=== PATIENT | female | born 1940 | race Caucasian/White ===

== ENCOUNTER 2023-09-26 17:51 | Inpatient (IN) | payer MEDICARE, SELFPAY ==
[2023-09-26] VITALS (21 sets, daily range): BP systolic 132–160; BP diastolic 52–80; BMI 29.5; BMI 28.5
[2023-09-26 12:26] LABS: % Basophils 1.8 % (0-2); % Eosinophils 4.1 % (0-6); % Immature Granulocytes 0.3 % (0-0.5); % Lymphocytes 36.8 % (20.5-51.1); % Monocytes 13.5 % (1.7-9.3); % Neutrophils 43.5 % (42.2-75.2); Absolute Basophils 0.1 10^3/uL (0-0.2); Absolute Eosinophils 0.2 10^3/uL (0-0.7); Absolute Lymphocytes 1.4 10^3/uL (1.2-3.4); Absolute Monocytes 0.5 10^3/uL (0.1-0.6); Absolute Neutrophils 1.7 10^3/uL (1.4-6.5); Hematocrit 23.1 % (37.0-47.0); Mean Corp Hgb Conc. 30.3 g/dL (33.0-37.0); Mean Corpuscular Hgb 21.8 pg (27.0-31.0); Mean Platelet Volume 8.9 fL (7.4-10.4); Nucleated Red Blood Cells % 0 %; Platelet Count 203 10^3/uL (130-400); Red Blood Cell Count 3.21 10^6/uL (4.20-5.40); White Blood Cell Count 3.9 10^3/uL (4.8-10.8)
[2023-09-26 12:40] LABS: INR 1.02; PT 13.4 Sec (11.4-14.6)
[2023-09-26 12:41] LABS: APTT 26.4 Sec (23.4-35.0)
[2023-09-26 12:42] LABS: ALT (SGPT) 18 U/L (0-35); AST (SGOT) 23 U/L (14-36); Albumin 3.8 g/dl (3.5-5.0); Alkaline Phosphatase 55 U/L (38-126); Blood Urea Nitrogen 15 mg/dl (7-17); Calcium 8.9 mg/dl (8.4-10.2); Carbon Dioxide 22 mmol/L (22-30); Chloride 107 mmol/L (98-107); Glucose 95 mg/dl (70-99); Potassium 4.2 mmol/L (3.5-5.1); Sodium 137 mmol/L (135-145); Total Bilirubin 0.8 mg/dl (0.2-1.3); Total Protein 6.6 g/dl (6.3-8.2); eGFR > 60.00
--- NOTE | 2023-09-26 16:01 | ED.GENMED ---
History of Present Illness
General
Chief Complaint: Abnormal Lab Value
Source: patient
Exam Limitations: none
Time Seen by Provider: 09/26/23 15:29
Nursing documentation reviewed up to this point in time: agreed with
Travel History
Have you had any contact with someone who has COVID-19?: No
Do you have any symptoms of coronavirus? Fever > 100 degrees, chills, cough, shortness of breath, sore throat, loss of taste or smell, muscle aches, or headache?: No
History of Present Illness
History of Present Illness:
82-year-old female with a history of hyperlipidemia not on medication, iron deficiency anemia Kanu compliant with her iron and depression presents for exertional shortness of breath, lightheadedness and fatigue ongoing over the last several weeks.
Patient had a hospitalization in December 2022 related to symptomatic anemia and was given a transfusion at that time. She coincidentally also had a UTI and had Klebsiella positive blood cultures.
Patient was placed on oral iron which she is occasionally compliant with because it gives her looser stools. Patient says that she has not followed up with a cylinder die machine helper since her admission but just her family doctor. While inpatient in December she
had an EGD and a colonoscopy, the colonoscopy visualized some hemorrhoids with ulceration on the hemorrhoid but no active bleeding, her EGD did not show any active bleeding
Patient says that she went to her doctor yesterday and had blood work and was called today with a hemoglobin of 7. Yesterday the patient was examined the rectal exam which was heme-negative brown stool and has not reported any positive blood in the
stool. Or black stool.
She is not having any exertional chest pain.
Secondarily the patient is also complaining of increased depressive thoughts, she is not sure if her anemia is contributing here but she has been on Lexapro for several months without any improvement.' Although she has no thoughts of self-harm she
is feeling quite hopeless and feels as though she needs to speak with a psychiatrist.
Past History
Past History
ED Past Medical History: Hypercholesterolemia and Psychiatric (anxiety/depression)
ED Past Surgical History: Bowel resection (Hx diverticulitis), Cholecystectomy and Gynecological (hysterectomy)
Social History
Tobacco: Non-smoker
Alcohol: None
Drug: None
Personal:
Living: alone
Employment: Retired
Review of Systems
Review of Systems
Allergies reviewed?: Yes
All Other Systems: Not applicable
Phy Exam
Physical Exam
Physical Exam:
GENERAL: Alert , in no apparent distress
EYE: pupils equal and reactive
NECK: Supple
ENT: o/p clr, mmm.
CARDIAC: Regular rate and rhythm .
LUNGS: Clear breath sounds bilaterally, no acute respiratory distress, no wheezes/rales/rhonchi
ABDOMEN: Soft, without focal tenderness, no r/g, no cvat, normal bowel sounds
DEFERRED RECTAL, HAD HEME NEG BROWN STOOL YESTERDAY
NEUROLOGICAL: Alert and oriented, no focal neuro deficits
SKIN: Warm and dry, skin intact.
MUSCULOSKELETAL: No edema, well perfused. neg jimena's sign
PSYCH: Normal and appropriate interaction.
Course
Orders/Labs/Results
Orders:
Orders
09/26/23 12:07
Type+Screen Urgent
Complete Blood Count/With Diff Urgent
Comprehensive Metabolic Panel Urgent
PT/INR [Prothrombin Time] Urgent
PTT Urgent
09/26/23 15:53
Blood Bank Products [* Blood Bank Products] Urgent
Blood Bank Products: *Packed RBC Leuko(PRBC's)
Quantity: 2
Transfuse Today: Yes
Reason: Anemia
09/26/23 16:01
Electrocardiogram (*1) Urgent
Reason for Study: Shortness of Breath
EKG- Treatment ONCE
Abnormal Lab Results
09/26/23
12:07
WBC 3.9 L 10^3/uL
(4.8-10.8)
RBC 3.21 L 10^6/uL
(4.20-5.40)
Hgb 7.0 L g/dL
(12.0-16.0)
Hct 23.1 L %
(37.0-47.0)
MCV 72.0 L fL
(81.0-99.0)
MCH 21.8 L pg
(27.0-31.0)
MCHC 30.3 L g/dL
(33.0-37.0)
RDW 17.0 H %
(11.5-14.5)
Monocytes % 13.5 H %
(1.7-9.3)
Crossmatch IS Only See Detail
09/26/23 12:07
09/26/23 12:07
Vital Signs
Initial and Last Documented VS:
Initial Vital Signs
Temp Pulse Resp BP Pulse Ox
98.6 F 67 20 133/68 97
09/26/23 11:59 09/26/23 11:59 09/26/23 11:59 09/26/23 11:59 09/26/23 11:59
Last Documented Vital Signs
Temp Pulse Resp BP Pulse Ox
98.1 F 71 16 142/52 98
09/26/23 16:23 09/26/23 16:23 09/26/23 16:23 09/26/23 16:23 09/26/23 16:23
MDM/Problems Addressed
Differential Diagnosis Includes:
Symptomatic anemia, depression, iron deficiency
MDM/Problems Addressed:
82-year-old female with known history of anemia presents for hemoglobin of 7 taken outpatient yesterday with symptoms of lightheadedness and fatigue. She had heme-negative stool yesterday on exam per the patient's documented visit at [facility]
with the provider. I was able to visualize that paperwork. Patient reports no black stool or bleeding from anywhere. She is intermittently compliant with her iron. She is also reporting feeling of helplessness and increasing depression. She is
not suicidal currently. Her son is also in the room and is concerned about her degree of depression. Patient says that she has a hard time confiding in people.
Given these 2 issues we will admit for transfusion, hemoglobin trending as well as psychiatrist consult
*Critical Care Note
Total Time (30-74mins, 75-104mins- exclusive of procedures): Not Applicable
ED Attending Note
-
Portions of this chart may have been created with voice recognition software.� Occasional wrong word or��sound alike� substitutions may have occurred due to the inherent limitations of voice recognition software.
Discharge Plan
Departure
Patient Disposition: Admit
Date of Disposition: 09/26/23
Time of Disposition: 16:06
Admit to: Med/Surg
Presentation/result/management discussed w/ accepting MD/DO: Hospitalist
Condition: Fair
Covid-19: Not Applicable
Discharge Problem:
Symptomatic anemia, Depression
Prescriptions:
No Action
acetaminophen [Tylenol Extra Strength] 500 mg Tablet
1,000 mg PO Q8HPRN PRN (Reason: mild pain)
escitalopram oxalate 20 mg Tablet
20 mg PO DAILY
Referrals:
Marissa Laguna MD [Family Provider] -
Interventions
Interventions:
*Risk Screen - Suicide Last Done: 09/26/23 15:34
*General Assessment Last Done: 09/26/23 15:34
*Neglect/Abuse Screening Last Done: 09/26/23 15:34
*ED COVID-19 Vaccine History Last Done: 09/26/23 11:59
Discharge Date and Time
Print Language: URDU
--- NOTE | 2023-09-26 16:32 | HPS.HSE ---
Addendum entered and electronically signed by Rosamaria Doherty MD 09/26/23 21:21:
I saw and examined the patient.
The OPTICIAN MANAGER or PA's note was reviewed and I agree with the note.
Comment:
82F [facility] anxiety/depression, iron deficiency anemia, Klebsiella bacteremia December 2022, diverticulitis with bowel resection.here for symptomatic anemia exertional dyspnea lightheadedness fatigue last several weeks. Hgb 7.0
receiving 1PRBC in ED. Outpt labs also noted severe Iron deficiency and low B12 levels. Otherwise VSS. No obvious signs of bleeding. Patient also reports concerns worsening depression despite home med Lexapro. Denies suicidal ideation
Physical Exam
General: No pallor, cyanosis, or jaundice.
HEENT: Throat clear. PERRLA Normocephalic atraumatic
NECK: Supple. No JVD Carotid Bruits
RESPIRATORY: Lungs clear to auscultation. No crackles wheezes stridor
CVS: S1, S2 normal. RRR. No murmur, rub or gallop.
ABDOMEN: Soft, non-tender. No distension. BS+/normal.
EXTREMITIES: No peripheral cyanosis or edema.
CORK GRINDER: AOx3. No focal deficits.
#Anemia of chronic disease
#severe iron def
#Low B12
Follow up AM post-transfusion CBC
check TSH reflex T4
Repeat Iron Studies and B12 leval
IV iron infusion, B12 supplementation
Heme GI Psych Eval
Original Note:
Family Physician
-
Family Physician: Marissa Laguna
Chief Complaint
-
Shortness of breath on exertion, lightheadedness, fatigue times several weeks
History of Present Illness
82-year-old female from [facility] complaining of shortness of breath on exertion, lightheadedness and fatigue for the last several weeks. She reportedly had heme-negative brown stool yesterday at her PCP. She has history of
iron deficiency anemia and does not take oral iron. She did require IV Ferrlecit for infusions December 2022. She had routine labs by PCP yesterday and called with a hemoglobin of 7, iron sat 5%, iron 22 and low B12 of 194 and advised to come to ER
for evaluation. She also reports increased depression not improving on Lexapro but no suicidal ideation. She denies headache, dizziness, fever, chills, chest pain, palpitations, shortness breath, cough, abdominal pain, nausea, vomiting, diarrhea,
black stools, urinary symptoms. She has past medical history of anxiety/depression, iron deficiency anemia, Klebsiella bacteremia December 2022, diverticulitis with bowel resection.
Medical History
Past Medical History
Past Medical History: Reports Other
Additional Past Medical History:
Iron deficiency anemia December 2022
Klebsiella bacteremia December 2022
Hypercholesterolemia
anxiety
depression
s/p Bowel resection (Hx diverticulitis)
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
Past Surgical History: Reports Other
Additional Past Surgical History:
Cholecystectomy
hysterectomy
s/p Bowel resection (Hx diverticulitis)
Bilateral total knee replacements
Social History
Tobacco: Non-smoker
Alcohol: None
Drug: None
Personal: Single
Living: Assisted Living ([facility] independent)
Family History
Family History: Other (Father age 98 unsure mother age 80 4 GI bleed, Hx iron deficiency, brother dementia)
Allergies / Home Medications
Allergies reflects when Allergies were last updated in adQ.
Home Medications with original date entered in adQ
Allergy/Medication List:
Allergies
Allergy/AdvReac Type Severity Reaction Status Date / Time
No Known Allergies Allergy Verified 01/05/23 16:39
Home Medications
acetaminophen 500 mg tablet (Tylenol Extra Strength) 1,000 mg PO Q8HPRN PRN mild pain 09/26/23
escitalopram oxalate 20 mg tablet 20 mg PO DAILY 09/26/23
Review of Systems
-
History Source: Patient and Family (Son at bedside)
A 12 point ROS was completed and negative except as noted: Yes
Constitutional: Reports Fatigue; Denies Fever or Chills
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
Respiratory: Reports Trouble Breathing (Dyspnea on exertion); Denies Cough
Cardiac: Denies Chest Pain, Diaphoresis, Palpitations or Syncope
Abdomen/GI: Denies Abdominal Pain, Nausea, Vomiting, Diarrhea, Constipated, Bloody Stools or Black Stools
: Denies Dysuria, Frequency, Flank Pain, Incontinence, Difficulty Voiding or Urgency
Musculoskeletal: Denies Joint Pain or Edema
Skin: Denies Itching or Rash
Neurological: Reports Dizzy; Denies Headache or Weakness
Endocrine: Reports No Symptoms
Hematologic/Lymphatic: Reports No Symptoms
Psych: Reports Calm
Physical Exam
Vital Signs
Vital Signs
Temp Pulse Resp BP Pulse Ox
98.1 F 71 16 142/52 98
09/26/23 16:23 09/26/23 16:23 09/26/23 16:23 09/26/23 16:23 09/26/23 16:23
Physical Exam
General: Comfortable, Conversant and Obese; No Pain, Fever or Chills
HEENT: NormoCephalic, Anicteric, Moist mucous membranes, PERRLA, No Ptosis and Other
Respiratory: Clear; No Wheezes, Rales or Rhonchi
Cardiac: S1/S2 and Regular Rhythm; No Murmur, Rub, Gallop or Peripheral Edema
Breast: Deferred by me
GI: Soft, Non Tender, Non Distended, Normal Bowel Sounds and No Hepatosplenomegaly
Rectal: Deferred by Provider (Was heme-negative brown by her PCP Dr. Marissa Laguna yesterday 09/25/2023)
Genito-urinary: Deferred by me
Musculoskeletal: No Clubbing, No Cyanosis and No Edema
Skin: Warm and Dry; No Rash or Jaundice
Neuro: AO x 3, No Motor Deficits, Nonfocal/grossly intact, No Sensory Deficits and Other (Chronic left-sided facial droop from prior Mercado's palsy); No Slurred Speech, Facial Droop or Tremors
Psych: Calm
Laboratory Results
-
09/26/23 12:07
09/26/23 12:07
Laboratory Results
PT 13.4 Sec (11.4-14.6) 09/26/23 12:07
INR 1.02 09/26/23 12:07
APTT 26.4 Sec (23.4-35.0) 09/26/23 12:07
Total Bilirubin 0.8 mg/dl (0.2-1.3) 09/26/23 12:07
AST 23 U/L (14-36) 09/26/23 12:07
ALT 18 U/L (0-35) 09/26/23 12:07
Alkaline Phosphatase 55 U/L (38-126) 09/26/23 12:07
Impression/Plan
-
Impression/plan:
Admit to telemetry
#Acute on chronic symptomatic microcytic anemia
Hgb 7, MCV 72 prior Hgb 9 01/11/2023
Hx iron deficiency anemia-received Ferrlecit 4 units December 2022
(Outpatient labs of 09/25/2023 iron sat 5%, iron 22 and low B12 of 192)-see scanned results in chart
-IV Ferrlecit
-Type and screen obtain blood consent
-Transfuse 1 unit PRBC
-Patient not compliant with oral iron recommended she resume after discharge and follow with PCP
-Follow CBC
-Consult HEME
-Consult GI
#B12 deficiency
Outpatient labs 09/25/2023 B12 192
-Start supplemental B12 daily
#Worsening depression
#Hx anxiety
No active suicidal ideation
-Continue current Lexapro
-Consult Psychiatry
#GERD/Hx GI bleed-likely hx december 2022
-Had probable GI bleed location not determined January 05, 2023
EGD/colonoscopy December 2022 no source of bleeding was advised had video capsule Endo but never had
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
#Hx Klebsiella bacteremia January 05, 2023
#HLD
-No reported meds
DVT prophylaxis
SCDs
Full code
--- NOTE | 2023-09-26 17:31 | W.PN.UPDATE ---
Update Note
Progress Note Update
billing purposes
--- NOTE | 2023-09-26 23:00 | PTCARENOTE ---
Pt arrived to [facility] from the ED and ambulated with x1 assist from stretcher to bed. Pt AAOx3, oriented to room with call car in reach. VS stable on admission.
[2023-09-26] MEDS: TYLENOL 650 MG PO (23:32)
[2023-09-27] VITALS (10 sets, daily range): BP systolic 16–142; BP diastolic 55–107; PULSE 81–86; O2SAT 93; BMI 28.5
--- NOTE | 2023-09-27 06:54 | CON.GI ---
Addendum entered and electronically signed by Erin Tejada DO 09/27/23 17:11:
GI will sign off, please call with questions. Patient will follow up with us outpatient.
Addendum entered and electronically signed by Erin Tejada DO 09/27/23 11:43:
patient seen and examined independently of PROCUREMENT SERVICES MANAGER. I agree with her note with my additions below
Tracy is an 82-year-old female with history of nondysplastic short segment Lundy's, large hiatal hernia, B12 deficiency, diverticulitis status post bowel resection in 2016 at [facility] which may have also included some small bowel, iron
deficiency anemia including last year where she was worked up in December 2022 with an endoscopy and a colonoscopy. She also had a Klebsiella bacteremia at that time. She was told to continue PPI and an outpatient capsule was to be done but
unfortunately she was unable to get a ride and was unable to follow-up in our office. She has been off PPI. She denies any dysphagia, no overt bleeding. Her stools are brown. She does have occasional diarrhea and says if she does not eat it will
get worse. She is lost about 8 pounds with dietary changes and moving to [facility]. Prior to admission her stools were subjectively heme-negative. Also has a history of cholecystectomy.
Her studies were consistent with iron deficiency anemia and on arrival her hemoglobin was 7 with an MCV in the 70s. She got 2 units of blood and over responded to 10.
Hematology also was consulted.
CT scan showed multiple anastomosis: -Bowel anastomosis at the distal ileum, ileocolic junction and distal sigmoid colon
Plan EGD
-- The EGD revealed Juan Jose ulcerations, large 10 cm hiatal hernia, irregular Z-line and a superficial duodenal ulcer in the bulb
-- Biopsies were taken for celiac disease and for H. pylori
-- Patient had been off her PPI
-- PLAN: PPI BID x 1 month, then once daily indefinitely, B12 replacement, IV iron. if no improvement in hgb studies after a couple of months, would do capsule outpatient.
-- discussed with team
-- left message with son, Jaun
Original Note:
Consultation
-
Date/Time Consultation Requested: 09/26/23 1700
Date/Time Consultation Performed: 09/17/23 0900
Requesting Provider: MINGO Capps
Performing Provider: MINGO Robles, Erin Tejada DO
Reason for Consultation: anemia
Medical History
Chief Complaint / HPI
Chief Complaint: weakness/shortness of breath
History of Present Illness:
The patient is a pleasant 82-year-old female with a past medical history significant for lundy's colon polyps, b12 deficiency, anxiety, depression, hyperlipidemia, diverticulitis status post bowel resection in 2015 at [facility], prior bells
palsy, iron deficiency anemia with admission in December for anemia work up and noted klebsiella bacteremia at that time. 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 Pt was instructed to continue PPI and due to age no repeat EGD needed. Colonoscopy initially poor prep but repeat with 6 mm polyp rectosigmoid, diverticulosis and internal hemorrhoids bx with TA polyp. Pt was sent up for VCE
but did not proceed with testing or follow up and recall not having ride for procedure. She now returns with hbg 7 with MCV 72 with OP iron 22, iron sat 5%, noted low B12 194 as outpatient.
She currently admits to occasional Tylenol and Aleve use. She admits to occasional diarrhea and wt loss 8 lbs but moved to [facility] with change in diet a few months ago. She denies dysphagia, odynophagia, GERD, nausea, vomiting, GERD,
abdominal pain, constipation, blood or black in stools. She reports heme neg stool at [facility] prior to admission.
Past Medical History
Past Medical History: Hypercholesterolemia, Psychiatric (anxiety/depression) and Other (iron deficiency anemia, klebsiella bacteremia 12/2022, adenomatous colon polyps, lundy's, bells palsy)
Past Surgical History: Bowel Resection (for diverticulitis ), Cholecystectomy, Gynecological (hysterectomy) and Orthopedic (TKR)
Social History
Tobacco: Non-Smoker
Alcohol: Occasional
Drug: None
Living: Other ([facility])
Employment: Retired
Family History
Family History: Other (no family hx colon CA or polyps)
Allergies / Home Medications
Allergy/AdvReac Type Severity Reaction Status Date / Time
No Known Allergies Allergy Verified 01/05/23 16:39
�Medication �Instructions �Recorded
acetaminophen 500 mg tablet 1,000 mg PO Q8HPRN PRN mild pain 09/26/23
(Tylenol Extra Strength)
escitalopram oxalate 20 mg tablet 20 mg PO DAILY 09/26/23
Review of Systems
-
History Source: Patient and Family
Constitutional: Reports Weight Loss (few lbs )
EENT: Reports No Symptoms
Respiratory: Reports Trouble Breathing
Cardiac: Reports No Symptoms
Abdomen/GI: Reports Diarrhea (occasional )
: Reports No Symptoms
Musculoskeletal: Reports No Symptoms
Skin: Reports No Symptoms
Neurological: Reports Dizzy
Hematologic/Lymphatic: Reports No Symptoms
Vital Signs
Temp Pulse Resp BP Pulse Ox
97.9 F 63 18 142/76 96
09/26/23 22:41 09/26/23 22:41 09/26/23 22:41 09/26/23 22:41 09/26/23 23:00
Physical Exam
Exam
General: Well Developed, Well Nourished and No Apparent Distress
HEENT: Normocephalic, Anicteric and Moist Mucous Membranes
Respiratory: Clear
Cardiac: Regular Rhythm
GI: Soft, Non Distended and Normal Bowel Sounds
Musculoskeletal: No Clubbing and No Cyanosis
Skin: Warm and Dry
Neuro: Awake, Alert and AO x 3
Psych: Calm
Results
WBC 3.9 10^3/uL (4.8-10.8) L 09/26/23 12:07
Hgb 7.0 g/dL (12.0-16.0) L 09/26/23 12:07
Hct 23.1 % (37.0-47.0) L 09/26/23 12:07
MCV 72.0 fL (81.0-99.0) L 09/26/23 12:07
Plt Count 203 10^3/uL (130-400) 09/26/23 12:07
Absolute Neuts (auto) 1.7 10^3/uL (1.4-6.5) 09/26/23 12:07
PT 13.4 Sec (11.4-14.6) 09/26/23 12:07
INR 1.02 09/26/23 12:07
APTT 26.4 Sec (23.4-35.0) 09/26/23 12:07
Sodium 137 mmol/L (135-145) 09/26/23 12:07
Potassium 4.2 mmol/L (3.5-5.1) 09/26/23 12:07
Chloride 107 mmol/L (98-107) 09/26/23 12:07
Carbon Dioxide 22 mmol/L (22-30) 09/26/23 12:07
BUN 15 mg/dl (7-17) 09/26/23 12:07
Creatinine 0.7 mg/dL (0.6-1.0) 09/26/23 12:07
Calcium 8.9 mg/dl (8.4-10.2) 09/26/23 12:07
Total Bilirubin 0.8 mg/dl (0.2-1.3) 09/26/23 12:07
AST 23 U/L (14-36) 09/26/23 12:07
ALT 18 U/L (0-35) 09/26/23 12:07
Alkaline Phosphatase 55 U/L (38-126) 09/26/23 12:07
Diagnostic Image Results:
12/2022 CT a/p
1). There is no evidence of acute pathology in the abdomen or pelvis.
2). Nonurgent findings include:
-Dependent atelectasis at the posterior lung bases.
-Cholecystectomy
-Bowel anastomosis at the distal ileum, ileocolic junction and distal sigmoid colon
- 8.5 cm left anterior pelvic wall hernia which contains only fat.
-Multilevel degenerative disc disease with 4 mm grade 1 spondylolisthesis of L3 on L4
-Old 20% compression fracture of the superior endplate of T12
Prior GI Procedures:
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
Colonoscopy: 12/2022 [facility] initially poor prep but repeat with 6 mm polyp rectosigmoid, diverticulosis and internal hemorrhoids bx with TA polyp
Assessment / Plan
-
The patient is a pleasant 82-year-old female with a past medical history significant for lundy's, colon polyps, B12 deficiency, anxiety, depression, hyperlipidemia, diverticulitis status post bowel resection in 2015 at [facility], prior bells
palsy, iron deficiency anemia with admission in December for anemia work up and noted klebsiella bacteremia at that time. 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 Pt was instructed to continue PPI and due to age no repeat EGD needed. Colonoscopy initially poor prep but repeat with 6 mm polyp rectosigmoid, diverticulosis and internal hemorrhoids bx with TA polyp. Pt was sent up for VCE
but did not proceed with testing or follow up and recall not having ride for procedure. She now returns with hbg 7 with MCV 72 with OP iron 22, iron sat 5%, noted low B12 194 as outpatient.
Problem list:
-severe microcytic anemia
-b12 deficiency
-brown heme +stool
-known 10 cm hiatal hernia
Other pertinent medical hx:
- hx lundy's
-adenomatous polyps
-klebsiella bacteremia
-hx diverticulitis s/p bowel resection in 2016
-anxiety/depression
-HLD
-car's palsy
Recommendations:
Etiology of anemia unclear (PUD, ectasias, juan jose lesion with hx 10cm HH vs other as also noted with B12 deficiency) -- recent EGD/colon 12/2022 with lundy's, HH and adenomatous polyp
discussed with patient, son and Dr. Rhoades as off PPI and occasional NSAID use would like to repeat EGD today-- pt is agreeable to proceed but would like to hold on repeat Colonoscopy
If EGD neg-- pt was recommended capsule but did no proceed as did not have a ride-- t/c OP capsule pending EGD results
treat B12 deficiency
add intrinsic factor and parietal cell Ab
change to NPO
add Protonix daily and reviewed with patient and son need to stay on therapy with hx lundy's
NSAID avoidance
trend hbg
iron infusion as needed per hematology
s/p 2 units PRBC's given repeat hbg 10.2
monitor for signs of active bleeding
-
-
Thank you for consultation and allowing me to participate in the patient's care. Please call the occupational health and safety adviser GI physician during the after hours with any questions or concerns.
[2023-09-27 07:32] LABS: % Basophils 1.3 % (0-2); % Eosinophils 3.6 % (0-6); % Immature Granulocytes 0.4 % (0-0.5); % Monocytes 14.5 % (1.7-9.3); % Neutrophils 54.2 % (42.2-75.2); Absolute Basophils 0.1 10^3/uL (0-0.2); Absolute Eosinophils 0.2 10^3/uL (0-0.7); Absolute Lymphocytes 1.2 10^3/uL (1.2-3.4); Absolute Monocytes 0.7 10^3/uL (0.1-0.6); Absolute Neutrophils 2.6 10^3/uL (1.4-6.5); Hematocrit 31.5 % (37.0-47.0); Mean Corp Hgb Conc. 32.4 g/dL (33.0-37.0); Mean Corpuscular Hgb 24.8 pg (27.0-31.0); Mean Corpuscular Volume 76.5 fL (81.0-99.0); Mean Platelet Volume 8.8 fL (7.4-10.4); Nucleated Red Blood Cells % 0 %; Platelet Count 179 10^3/uL (130-400); Red Blood Cell Count 4.12 10^6/uL (4.20-5.40); Red Cell Dist. Width 17.7 % (11.5-14.5); White Blood Cell Count 4.8 10^3/uL (4.8-10.8)
[2023-09-27 07:42] LABS: Hemoglobin 10.2 g/dL (12.0-16.0)
[2023-09-27 08:09] LABS: Blood Urea Nitrogen 13 mg/dl (7-17); Calcium 8.8 mg/dl (8.4-10.2); Carbon Dioxide 23 mmol/L (22-30); Chloride 111 mmol/L (98-107); Estimated Creatinine Clearance 72 ml/min; Glucose 91 mg/dl (70-99); Iron 69 ug/dl (37-170); Potassium 4.1 mmol/L (3.5-5.1); Sodium 137 mmol/L (135-145); eGFR > 60.00
[2023-09-27 08:18] LABS: Percent Saturation 17 % (20-50); Total Iron Binding Capacity 402 ug/dl (265-497)
[2023-09-27] MEDS: VITAMIN B-12 1000 MCG PO (08:29)
[2023-09-27] MEDS: LEXAPRO 20 MG PO (08:30)
[2023-09-27] MEDS: PROTONIX 40 MG PO (08:30)
[2023-09-27 08:36] LABS: TSH Reflex To Free T4 1.94 uIU/ml (0.47-4.68)
[2023-09-27] MEDS: TYLENOL 650 MG PO ×2 (08:40→22:47)
[2023-09-27 08:55] LABS: Vitamin B12 205 pg/ml (239-931)
--- NOTE | 2023-09-27 11:24 | CON.ONC ---
Impression
Impression
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
B12 deficiency
Hiatal hernia
History of Mojica's esophagus
History of adenomatous polyps
History of Klebsiella bacteremia
History of diverticulitis status post bowel resection 2015
Depression/anxiety
HLD
Mercado's palsy with residual weakness
Plan
Plan
With heme positivity would perform EGD to be followed by capsule endoscopy
Parenteral resuscitation with B12 and iron now
Patient may need regular iron resuscitation as an outpatient particularly if now on PPI
Status post 2 units packed red blood cell hemoglobin 10.2
Intrinsic factor antibody
Monitor CBC and reticulocyte count
Patient History
History of Present Illness
82-year-old female from [facility] complaining of shortness of breath on exertion, lightheadedness and fatigue for the last several weeks. She reportedly had heme-negative as an outpatient. She received 1 unit of packed red
blood cells on arrival in the emergency room.. She has history of iron deficiency anemia and does not take oral iron. She did require IV Ferrlecit for infusions December 2022. She had routine labs as an outpatient which resulted a hemoglobin of 7,
iron sat 5%, iron 22 and low B12 of 194 and advised to come to ER for evaluation. She also reports increased depression not improving on Lexapro but no suicidal ideation. She denies headache, dizziness, fever, chills, chest pain, palpitations,
shortness breath, cough, abdominal pain, nausea, vomiting, diarrhea, black stools, urinary symptoms. She has had incomplete GI workup with no history of capsular endoscopy to evaluate small bowel. Previous peptic ulcer.
Past-Medical/Surgical History
Past Medical History
Iron deficiency anemia December 2022
Klebsiella bacteremia December 2022
Hypercholesterolemia
Anxiety
Depression
s/p Bowel resection (Hx diverticulitis)
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
Past Surgical History:
Cholecystectomy
hysterectomy
s/p Bowel resection (Hx diverticulitis)
Bilateral total knee replacements
Social History
Tobacco: Non-smoker
Alcohol: None
Drug: None
Personal: Single
Living: Assisted Living ([facility] independent)
Family History
Family History: Other (Father age 98 unsure mother age 80 4 GI bleed, Hx iron deficiency, brother dementia)
Patient Medication
�Medication �Instructions �Recorded �Confirmed �Last Taken �Type
acetaminophen 500 mg tablet 1,000 mg PO Q8HPRN PRN mild pain 09/26/23 09/26/23 09/25/23 History
(Tylenol Extra Strength)
escitalopram oxalate 20 mg tablet 20 mg PO DAILY Depression 09/26/23 09/26/23 09/26/23 History
Active Medications
Generic Name Dose Route Start Last Admin
Trade Name Freq PRN Reason Stop Dose Admin
Acetaminophen 650 mg 09/26/23 22:33 09/27/23 08:40
Acetaminophen 325 Mg Tablet PO 10/24/23 22:32 650 mg
Q4HPRN PRN Administration
mild pain/MORRISSEY/temp> 100.4F
Bisacodyl 10 mg 09/26/23 22:33
Bisacodyl 10 Mg Rectal Suppository RECTAL 10/24/23 22:32
DAILYPRN PRN
constipation
Cyanocobalamin 1,000 mcg 09/27/23 08:00 09/27/23 08:29
Cyanocobalamin 1,000 Mcg Tablet PO 10/25/23 07:59 1,000 mcg
DAILY LEONEL Administration
Escitalopram Oxalate 20 mg 09/27/23 08:00 09/27/23 08:30
Escitalopram 20 Mg Tablet PO 10/25/23 07:59 20 mg
DAILY LEONEL Administration
Ferric Sodium Gluconate 110 mls @ 110 mls/hr 09/27/23 14:00
Complex 125 mg/ Sodium IV 10/01/23 14:59
Chloride DAILY@1400 LEONEL
Pantoprazole Sodium 40 mg 09/27/23 08:00 09/27/23 08:30
Pantoprazole 40 Mg Delayed Release Tablet PO 10/25/23 07:59 40 mg
DAILY LEONEL Administration
Polyethylene Glycol 17 grams 09/26/23 22:33
Polyethylene Glycol Powder 17 Grams Packet PO 10/24/23 22:32
DAILYPRN PRN
constipation
Senna/Docusate Sodium 1 tablet 09/26/23 22:33
Docusate W/Senna (Gretchen-Colace) Tablet PO 10/24/23 22:32
BIDPRN PRN
constipation
Sodium Chloride 0 flush 09/26/23 23:00
Sodium Chloride 0.9% (Flush) Syringe IV 10/24/23 22:59
PER PROTOCOL LEONEL
Review of Systems
-
10 point review of systems fails to elicit additional complaints other than those reviewed in the HPI
Physical Exam
-
Physical Exam
General: Comfortable and Conversant
HEENT: Normocephalic, Anicteric, Moist mucous membranes
Respiratory: Clear; No Wheezes, Rales or Rhonchi
Cardiac: S1/S2 and Regular Rhythm; No Murmur, Rub, Gallop or Peripheral Edema
GI: Soft, Non Tender, Non Distended, Normal Bowel Sounds and No Hepatosplenomegaly
Rectal: Deferred (heme-negative brown by her PCP Dr. Marissa aLguna 09/25/2023)
Musculoskeletal: No Clubbing, No Cyanosis and No Edema
Skin: Warm and Dry; No Rash or Jaundice
Neuro: AO x 3, No Motor Deficits, Nonfocal/grossly intact, No Sensory Deficits and Other (Chronic left-sided facial droop from prior Mercado's palsy)
Psych: Calm
Labs
Lab Results
WBC 4.8 10^3/uL (4.8-10.8) 09/27/23 07:16
RBC 4.12 10^6/uL (4.20-5.40) L 09/27/23 07:16
Hgb 10.2 g/dL (12.0-16.0) L D 09/27/23 07:16
Hct 31.5 % (37.0-47.0) L 09/27/23 07:16
MCV 76.5 fL (81.0-99.0) L 09/27/23 07:16
MCH 24.8 pg (27.0-31.0) L 09/27/23 07:16
MCHC 32.4 g/dL (33.0-37.0) L 09/27/23 07:16
RDW 17.7 % (11.5-14.5) H 09/27/23 07:16
Plt Count 179 10^3/uL (130-400) 09/27/23 07:16
MPV 8.8 fL (7.4-10.4) 09/27/23 07:16
Abs Immat Gran (auto) 0.0 10^3/uL (0-0.05) 09/27/23 07:16
Absolute Neuts (auto) 2.6 10^3/uL (1.4-6.5) 09/27/23 07:16
Absolute Lymphs (auto) 1.2 10^3/uL (1.2-3.4) 09/27/23 07:16
Absolute Monos (auto) 0.7 10^3/uL (0.1-0.6) H 09/27/23 07:16
Absolute Eos (auto) 0.2 10^3/uL (0-0.7) 09/27/23 07:16
Absolute Basos (auto) 0.1 10^3/uL (0-0.2) 09/27/23 07:16
Immature Gran % 0.4 % (0-0.5) 09/27/23 07:16
Neutrophils % 54.2 % (42.2-75.2) 09/27/23 07:16
Lymphocytes % 26.0 % (20.5-51.1) 04/11/24 07:16
Monocytes % 14.5 % (1.7-9.3) H 09/27/23 07:16
Eosinophils % 3.6 % (0-6) 09/27/23 07:16
Basophils % 1.3 % (0-2) 09/27/23 07:16
Creatinine 0.6 mg/dL (0.6-1.0) 09/27/23 07:16
Vital Signs
Vital Signs
Temp Pulse Resp BP Pulse Ox
98.0 F 60 18 137/64 93
09/27/23 07:30 09/27/23 07:30 09/27/23 07:30 09/27/23 08:30 09/27/23 07:30
--- NOTE | 2023-09-27 11:49 | W.PN.HOSP.TC ---
Today's Communication/Plan
-
see outlined plan
Assessment / Plan
Assessment / Plan
Assessment:
Multifactorial anemia
Acute on chronic anemia
Symptomatic anemia - microcytic
B12 deficiency
Iron deficiency
- s/p 1 unit PRBC; Hb 10.2 currently
- s/p EGD: Z-line irregular, 32 cm from the incisors. 10 cm hiatal hernia with multiple Juan Jose ulcers. Non-bleeding duodenal ulcer with no stigmata of bleeding. Biopsies were taken with a cold forceps for Helicobacter pylori testing. Biopsies were
taken with a cold forceps for evaluation of celiac disease.
- B12 injection daily
- IV Iron daily; OP setup with Heme
- Heme/GI following
Hiatal hernia
History of Mojica's esophagus
hx of GERD
- continue PPI
Worsening depression
Hx anxiety
- no SI
- continue current Lexapro
- consult Psychiatry
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
Hx Klebsiella bacteremia January 05, 2023
HLD
- No reported meds
DVT prophylaxis: SCDs
Code: Full
Anticipated Discharge: 24 - 48 hours
Subjective/Interval History
-
Date of Service: September 27, 2023
s/p EGD
no current complaints
Objective Data
-
Labs:
Laboratory Results
09/27/23
07:16
WBC 4.8
Hgb 10.2 L D
Hct 31.5 L
Plt Count 179
Sodium 137
Potassium 4.1
Chloride 111 H
Carbon Dioxide 23
BUN 13
Creatinine 0.6
Glucose 91
Calcium 8.8
Vital Signs:
Vital Signs
Temp Pulse Resp BP Pulse Ox
97.1 F 60 18 130/59 96
09/27/23 11:38 09/27/23 07:30 09/27/23 11:38 09/27/23 11:38 09/27/23 11:39
I&O
09/26/23 09/27/23 09/28/23
06:59 06:59 06:59
Intake Total 740 / 740
Balance 740 / 740
Physical Exam
-
General: No Apparent Distress
HEENT: Normocephalic and Atraumatic
Respiratory: Clear to Auscultation; Negative Wheezes or Rales
Cardiac: Regular Rhythm and S1/S2
GI: Soft and Nontender
Genito-urinary: No Costovertebral Tender
Neuro: AO x 3
Hematologic / Lymphatic: No Lymphadenopathy
Psych: Calm
Data Reviewed
-
Total Time Spent with Patient (in minutes): 42
Labs: Labs Reviewed by me
--- NOTE | 2023-09-27 12:07 | W.PN.UPDATE ---
Update Note
Progress Note Update
reviewed chart and attempted to see patient but she was still in gi suite after egd. will note here what i have gleaned from the history so far. the patient is an 82 year old woman with hx hld on no meds who has struggled with anemia. she was here
in summer of 2022 and was found to be seriously anemic and transfused and placed on iron. cause for anemia not elucidated although workup was pursued. she also was found to have uti and klebsiella sepsis. she returns on this occasion to w c/o
shortness of breath, lightheadedness and fatugue. she was again found to be anemic with a hgb of 7, and this time egd reveals source including esophageal ulceration hiatal hernia and duodenal ulcer. bx taken. the patient had been off her ppi. the
patient has hx of depression and was taking lexapro 20 mg daily but not feeling it was very helpful. she is not suicidal but according to the chart has less will to live and sometimes feels hopeless and was requesting to speak with a psychiatrist.
further information will be obtained in interview hopefully later today or tomorrow am depending on patient ability to participate. patient w pmh of hld on no meds anemia w iron deficiency and results of egd as above hx bowel resection for
diverticulitis, hysterectomy and cholecystectomy, adenomatous polyps, car's palsy and lundy's esophagus. ecg first degree block otherwise normal.
full note to follow
--- NOTE | 2023-09-27 12:40 | CON.MD ---
Consultation - Medical
-
patient seen chart reviewed. discussed with nursing. please see my note for patient's recent and past medical hx. she was still in gi suite post egd when this chart was reviewed. she was seen upon her return. patient describes dealing with
depression for some years. she recalls being placed on wellbutrin and cymbalta in the past and feels they helped but cannot recall why they were stopped and she started to take lexapro about six years ago prescribed by her pcp. she thinks some days
it is very helpful and some days it is not she is never suicidal. she has never required hospital. she adds that she has 'no reason' to be depressed. she has a nice life with a loving family and many kids grandkids and great grands who are very
attentive. she has a jewish friends etc. (i reminded her that there does not need to be a reason for depression....it is an illness ....) she has questioned whether the anemia plays a role. last summer she collapsed and required three units of
blood. she did feel better after that rx but for the past several months has been very tired and listless which she thought could be depression. there is nothing to suggest psychosis. sleep okay appetite fair she can enjoy aspects of her life
past psych hx see above see prior note
medical hx see prior note see above
family hx mother was depressed no rx
substance abuse none she does not drink
social twenty years ago saddens her bc he would have been thrilled with his grands great grands. she has four kids one is a lens grinder. family is very + she has friendships and a jewish. her hobby is her family
mse alert ox3 pleasant and very cooperative. patient very thoughtful about her life and circumstance thought process and speech normal. mood is s/w dysphoric affect ok no si no psychosis intelligence aver insight judgment good
dx unspec depression
recommendations it is not clear to me how much of a role a hgb of 7 may have played in patient 's report of depression. that remains to be seen. generally the max dose in elderly for lexapro is 20 and i would reduce dose to 10 and monitor how she
does. if she feels better once she is not quite so anemic and her illness has been treated would continue lexapro. otherwise i would suggest consideration be given to another antidepressant perhaps effexor which affects serotonin and
norephinephrine. other options would be fetzima or trintellix but not clear if insurance would pay for it. will return to see her tomorrow
[2023-09-27] MEDS: CYANOCOBALAMIN 1000 MCG IM (13:39)
[2023-09-27] MEDS: FERRLECIT 110 MG IV (13:44)
--- NOTE | 2023-09-27 16:00 | CM ---
manager membership reviewed patient's chart and met with patient and patient resides at [facility]. patient is independent with adl's and ambulation, patient has a cane and walker that belonged to her in her apartment. Patient does not use any
dme, patient no longer drives, patient has a prescription plan and uses [facility] pharmacy.
PCP: Dr. Laguna
Plan: Home when stable no needs. Back to [facility] apartments.
[2023-09-27] MEDS: IMODIUM 2 MG PO ×2 (17:15→22:45)
[2023-09-28 07:23] LABS: % Basophils 1.2 % (0-2); % Eosinophils 3.1 % (0-6); % Immature Granulocytes 0.4 % (0-0.5); % Lymphocytes 26.6 % (20.5-51.1); % Monocytes 14.4 % (1.7-9.3); % Neutrophils 54.3 % (42.2-75.2); Absolute Basophils 0.1 10^3/uL (0-0.2); Absolute Eosinophils 0.2 10^3/uL (0-0.7); Absolute Lymphocytes 1.4 10^3/uL (1.2-3.4); Absolute Monocytes 0.7 10^3/uL (0.1-0.6); Absolute Neutrophils 2.8 10^3/uL (1.4-6.5); Hematocrit 30.7 % (37.0-47.0); Hemoglobin 9.9 g/dL (12.0-16.0); Mean Corp Hgb Conc. 32.2 g/dL (33.0-37.0); Mean Corpuscular Hgb 24.4 pg (27.0-31.0); Mean Corpuscular Volume 75.8 fL (81.0-99.0); Mean Platelet Volume 9.3 fL (7.4-10.4); Nucleated Red Blood Cells % 0 %; Platelet Count 170 10^3/uL (130-400); Red Blood Cell Count 4.05 10^6/uL (4.20-5.40); Red Cell Dist. Width 18.1 % (11.5-14.5); White Blood Cell Count 5.1 10^3/uL (4.8-10.8)
[2023-09-28 07:30] VITALS: BP 146/60
[2023-09-28 08:11] LABS: Blood Urea Nitrogen 12 mg/dl (7-17); Calcium 8.9 mg/dl (8.4-10.2); Carbon Dioxide 21 mmol/L (22-30); Chloride 110 mmol/L (98-107); Estimated Creatinine Clearance 72 ml/min; Glucose 93 mg/dl (70-99); Potassium 3.7 mmol/L (3.5-5.1); Sodium 138 mmol/L (135-145); eGFR > 60.00
[2023-09-28] MEDS: PROTONIX 40 MG PO (08:25)
[2023-09-28] MEDS: LEXAPRO 10 MG PO (08:25)
[2023-09-28] MEDS: CYANOCOBALAMIN 1000 MCG IM (08:26)
--- NOTE | 2023-09-28 10:09 | W.PN.HOSP.TC ---
Today's Communication/Plan
-
dc to home later
Assessment / Plan
Assessment / Plan
Assessment:
Multifactorial anemia
Acute on chronic anemia
Symptomatic anemia - microcytic
B12 deficiency
Iron deficiency
- s/p 1 unit PRBC; Hb 9.9 currently
- s/p EGD: Z-line irregular, 32 cm from the incisors. 10 cm hiatal hernia with multiple Juan Jose ulcers. Non-bleeding duodenal ulcer with no stigmata of bleeding. Biopsies were taken with a cold forceps for Helicobacter pylori testing. Biopsies were
taken with a cold forceps for evaluation of celiac disease.
- continue PPI BID x 1 month, then daily.
- B12 injection daily while in hospital, then PO at discharge
- IV Iron daily while in hospital, then PO at discharge; OP setup with Heme for further IV infusions
- Heme/GI follow up OP
Hiatal hernia
History of Mojica's esophagus
hx of GERD
- continue PPI BID x 1 month, then daily.
Worsening depression
Hx anxiety
- no SI
- continue current Lexapro; reduced to 10mg daily
- appreciate Psychiatry input
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
Hx Klebsiella bacteremia January 05, 2023
HLD
- No reported meds
DVT prophylaxis: SCDs
Code: Full
More than 30 minutes spent in discharge including
Final examination of the patient
Summarizing hospital stay
Instructions for continuing care to all relevant caregivers
Preparation of discharge records, prescriptions, and referral forms
Total time spent (in minutes): 41
Anticipated Discharge: Today
Subjective/Interval History
-
Date of Service: September 28, 2023
no new complaints
Hb 9.9
Objective Data
-
Labs:
Laboratory Results
09/28/23
06:36
WBC 5.1
Hgb 9.9 L
Hct 30.7 L
Plt Count 170
Sodium 138
Potassium 3.7
Chloride 110 H
Carbon Dioxide 21 L
BUN 12
Creatinine 0.6
Glucose 93
Calcium 8.9
Vital Signs:
Vital Signs
Temp Pulse Resp BP Pulse Ox
98.6 F 66 18 146/60 95
09/28/23 07:30 09/28/23 07:30 09/28/23 07:30 09/28/23 07:30 09/28/23 07:30
I&O
09/27/23 09/28/23 09/29/23
06:59 06:59 06:59
Intake Total 740 / 740 840 / 840
Balance 740 / 740 840 / 840
Physical Exam
-
General: No Apparent Distress
HEENT: Normocephalic and Atraumatic
Respiratory: Negative Wheezes or Rales
Cardiac: Regular Rhythm and S1/S2
Genito-urinary: No Costovertebral Tender
Neuro: AO x 3
Hematologic / Lymphatic: No Lymphadenopathy
Psych: Calm
Data Reviewed
-
Total Time Spent with Patient (in minutes): 41
Labs: Labs Reviewed by me
--- NOTE | 2023-09-28 10:17 | W.DS.TRANS ---
DC Summary - Animal Cruelty Investigator
-
Discharge Instructions:
Discharge Diagnosis/Procedures Anemia, hiatal hernia and small ulcers on EGD
11
Diet Regular
Activity As tolerated
Bathing Restrictions None
Instructions:
Stand-Alone Forms:
Changes to Home Medications: No
Discharge Medications:
DC Medications w/original date entered in [employer]
acetaminophen 500 mg tablet (Tylenol Extra Strength) 1,000 mg PO Q8HPRN PRN mild pain 09/26/23
cyanocobalamin (vitamin B-12) 1,000 mcg tablet 1,000 mcg PO DAILY #100 tabs 09/28/23
escitalopram oxalate 10 mg tablet 10 mg PO DAILY #30 tabs 09/28/23
ferrous sulfate 325 mg (65 mg iron) tablet 325 mg PO DAILY #100 tabs 09/28/23
pantoprazole 40 mg tablet,delayed release 40 mg PO BID #60 tabs 09/28/23
pantoprazole 40 mg tablet,delayed release (Protonix) 40 mg PO DAILY #30 tabs 09/28/23
Home Medication Changes
Pending Results: No
Total time spent discharging patient (in min): 42
--- NOTE | 2023-09-28 10:19 | W.DS.TRANS ---
DC Summary - Critical Care Paramedic
-
Discharge Instructions:
Discharge Diagnosis/Procedures Anemia, hiatal hernia and small ulcers on EGD /
11
Diet Regular
Activity As tolerated
Bathing Restrictions None
Instructions:
Stand-Alone Forms:
Changes to Home Medications: Yes
Discharge Medications:
DC Medications w/original date entered in [employer]
acetaminophen 500 mg tablet (Tylenol Extra Strength) 1,000 mg PO Q8HPRN PRN mild pain 09/26/23
cyanocobalamin (vitamin B-12) 1,000 mcg tablet 1,000 mcg PO DAILY #100 tabs 09/28/23
escitalopram oxalate 10 mg tablet 10 mg PO DAILY #30 tabs 09/28/23
ferrous sulfate 325 mg (65 mg iron) tablet 325 mg PO DAILY #100 tabs 09/28/23
pantoprazole 40 mg tablet,delayed release 40 mg PO BID #60 tabs 09/28/23
pantoprazole 40 mg tablet,delayed release (Protonix) 40 mg PO DAILY #30 tabs 09/28/23
Home Medication Changes
reduced Lexapro from 20mg to 10mg
Pending Results: No
Total time spent discharging patient (in min): 42
--- NOTE | 2023-09-28 10:45 | CM ---
Chart reviewed and patient has been cleared for discharge to home today, no needs, patient to return to her apartment at [facility], patient's son to transport patient.
Plan; Patient to return to her apartment at [facility] today.
[2023-09-28] MEDS: FERRLECIT 110 MG IV (11:50)
--- NOTE | 2023-09-28 12:22 | W.PN.UPDATE ---
Update Note
Progress Note Update
patient seen chart reviewed. patient is set for dc today. she is eager to leave 'back to my comfortable bed.' we discussed my recommendations. she is aware that lexapro decreased to 10 mg. she shouuld see how she feels vis a vis depression . if
with rx of her medical illness she feels better psychiatrically would just continue the lexapro. if not would consider a change perhaps to effexor. the patient has a medicare advantage plan. i would have referred her to dr [facility] but
he is not in network. she will have to access a psychiatrist through her network or see her pcp for rx of depression if it is needed.
[2023-09-28 15:36] LABS: Gastric Parietal Cell Ab, IgG 1.6 Units (0.0-24.9)
[2023-09-29 01:15] LABS: Intrinsic Factor Blocking Ab Negative (Negative)
== END 2023-09-28 14:36 | disposition home or self-care (01) | DRG 812 ==
LOC: 4 WEST ACU 17:51
PROVIDERS: Clinical Nurse Specialist Family Health; Internal Medicine; Student in an Organized Health Care Education/Training Program; ADMITTING PHYSICIAN Hospitalist; ATTENDING PHYSICIAN Internal Medicine; CONSULT PHYSICIAN Internal Medicine; CONSULT PHYSICIAN Internal Medicine Hematology & Oncology; EMERGENCY PHYSICIAN Emergency Medicine; FAMILY PHYSICIAN Internal Medicine Geriatric Medicine; OTHER PHYSICIAN Psychiatry & Neurology Psychiatry
PROC: 30233N1 Transfusion of Nonautologous Red Blood Cells into Peripheral Vein, Percutaneous Approach (ICD-10-PCS; 2023-09-26)
PROC: 0DB98ZX Excision of Duodenum, Via Natural or Artificial Opening Endoscopic, Diagnostic (ICD-10-PCS; 2023-09-27)
DX: D50.9 Iron deficiency anemia, unspecified (principal); D51.9 Vitamin B12 deficiency anemia, unspecified; F32.A Depression, unspecified; D63.8 Anemia in other chronic diseases classified elsewhere; E53.8 Deficiency of other specified B group vitamins; E78.00 Pure hypercholesterolemia, unspecified; K44.9 Diaphragmatic hernia without obstruction or gangrene; G51.0 Bell's palsy; K22.89 Other specified disease of esophagus; K25.7 Chronic gastric ulcer without hemorrhage or perforation; K26.9 Duodenal ulcer, unspecified as acute or chronic, without hemorrhage or perforation
CPT/HCPCS: 88305; 36430; 80048; 80053; 82607; 83516; 83540; 83550; 84443; 85025; 85610; 85730; 86340; 86850; 86900; 86901; 86920; 87070; 88342; 93005; 97162; 97166; 99285; J2916; P9016

== ENCOUNTER 2024-12-02 15:14 | Inpatient (IN) | payer MEDICARE, SELFPAY ==
[2024-12-02] VITALS (11 sets, daily range): BP systolic 119–133; BP diastolic 45–64; PULSE 84–93
--- NOTE | 2024-12-02 12:59 | ED.GENMED ---
History of Present Illness
General
Chief Complaint: Weakness
Time Seen by Provider: 12/02/24 12:59
History of Present Illness
History of Present Illness:
TIME OF INITIAL EVALUATION
- 1:05 PM
REVIEW OF OLD RECORDS
- I reviewed records, the patient was admitted with multifactorial anemia last year. 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 She is also had Klebsiella bacteremia in 2022.
Note:
CHIEF COMPLAINT(S)
Dizziness and lightheadedness.
HISTORY OF PRESENT ILLNESS
The patient is an 83-year-old female who presents with dizziness and lightheadedness. These symptoms began approximately two to three weeks ago and have progressively worsened over the past week. The patient reports increased difficulty with
ambulation and feels as though she could pass out. She denies any headaches. There is also noted confusion. Additionally, she reports blurry vision . There are no urinary symptoms such as burning, although she has not been getting up as frequently
at night to urinate.
PHYSICAL EXAM
- General: The patient appears generally weak and debilitated
- HEENT: Slightly dry oral mucosa, 2024 left, 2014 right
- Cardiovascular: No murmurs, normal heart rate, regular rhythm, No chest wall tenderness
- Pulmonary: No respiratory distress, breath sounds are clear and equal
- Abdomen: Soft with no peritoneal signs, no tenderness
- Neurologic: Fair strength all extremities, no coordination deficits, normal [id number] bilaterally
- Psychiatric: Appropriate mental status, normal insight and judgement
- Extremities: Nontender, no edema, moves all extremities equally
- Skin: Appears somewhat pale
ADDITIONAL HISTORY OBTAINED FROM SOURCES OTHER THAN THE PATIENT
According to her son, the patient has been very confused, and he mentions wanting her evaluated today due to this increase in confusion along with her other symptoms.
PLAN
1. Catheterize the bladder to obtain a real quick urine sample to rule out a urinary tract infection.
2. Obtain a computed tomography scan of the brain.
3. Administer intravenous fluids.
4. Draw blood for laboratory analysis to evaluate her current health status.
DIFFERENTIAL DIAGNOSIS
The Differential Diagnosis includes, in no particular order and is not limited to:
1. Orthostatic hypotension
2. Dehydration
3. Cerebral vascular accident (stroke or transient ischemic attack)
4. Urinary tract infection
5. Medication side effects
6. Vestibular disorders (such as benign paroxysmal positional vertigo)
7. Anemia
8. Cardiac arrhythmia
9. Hypoglycemia
10. Dementia-related changes
RADIOLOGY
- CT head obtained
�No intracranial hemorrhage on my read
EKG
- Sinus 76, normal axis, nonspecific ST abnormality
LABS
- White count is normal, hemoglobin 8.7, 1 year ago was 9.9 but she has been as low as 7.3 2022
UPDATE
-12/02/24 - 14:20
The patients recent blood work reveals an extremely low platelet count at 8,000, significantly below the normal range of 150,000 to 400,000. Although the son thought she had low platelets in the past, there are no records in [employer] indicating
that she was thrombocytopenic but has had anemia in the past. There is a concern for possible internal bleeding due to noted black tarry stools, prompting an examination to rule out any bleeding in the brain or other complications. Hemoglobin
levels have also been low in the past, reaching into the sevens, raising the possibility of concurrent anemia. The patient has borderline trace heme positive stool but hardly any stools obtained on digital rectal examination
DIAGNOSIS
- Thrombocytopenia, unspecified (ICD-10 D69.6)
SUMMARY OF ENCOUNTER
The patient, an 83-year-old female, was seen in the emergency department due to worsening dizziness, lightheadedness, and confusion over the past two to three weeks. Notably, there was concern regarding her recent blood work revealing extremely low
platelet counts at 8,000. The patient also presented with black tarry stools, indicative of potential gastrointestinal bleeding.
DISPOSITION
Admit
CONSIDERATION FOR ADMISSION
Due to the patients severely low platelet count and potential for internal bleeding, admission to the hospital was deemed necessary.
ASSESSMENT
The primary concern for the patient is severe thrombocytopenia with a low platelet count of 8,000. There is also a possible gastrointestinal bleed given the presence of heme-positive stool.
EMERGENCY TREATMENTS ADMINISTERED
A round of platelet transfusion was recommended and initiated.
MANAGEMENT OF THE PATIENTS CARE WAS DISCUSSED WITH
Hematology consultation with Dr. Olmos was obtained, who agreed with the management plan of platelet transfusion.
PLAN
The plan is to administer a platelet transfusion and keep the patient in the hospital for further evaluation and management. This includes monitoring for any signs of internal bleeding and addressing her symptoms of dizziness and confusion.
INDEPENDENT INTERPRETATION OF TESTS
- My independent interpretation of the CAT scan of the brain is that there were no definitive findings indicating acute bleeding or significant abnormalities.
MEDICAL DECISION MAKING
Number and Complexity of Problems Addressed: The patient presented with acute severe thrombocytopenia, requiring emergent evaluation and treatment. The low platelet count and potential for internal bleeding were primary concerns warranting close
monitoring and intervention.
Data: The decision to admit the patient and administer platelet transfusion was based on her critical laboratory findings. Consultation with hematology was sought to guide treatment.
Risk: The patients care involved consideration of hospitalization, presumably due to her thrombocytopenia and potential internal bleeding. The administration of a blood transfusion carries inherent risks which were considered in her care plan.
Past History
Past History
ED Past Medical History: Hypercholesterolemia and Psychiatric (anxiety/depression)
ED Past Surgical History: Bowel resection (Hx diverticulitis), Cholecystectomy and Gynecological (hysterectomy)
Social History
Tobacco: Non-smoker
Alcohol: None
Drug: None
Personal:
Living: alone
Employment: Retired
Phy Exam
Physical Exam
Physical Exam:
See HPI
Course
Orders/Labs/Results
Orders:
Orders
12/02/24 12:36
Complete Blood Count/With Diff Urgent
Comprehensive Metabolic Panel Urgent
Manual Differential Urgent
12/02/24 13:17
CT Head W/o Iv Contrast Urgent
Comment:
Reason For Exam: severe worsening dizziness
0.9% Sodium Chloride 500 ml [Nss] 500 ml IV BOLUS
12/02/24 13:19
Electrocardiogram (*1) Urgent
Reason for Study: Vertigo / Dizzy
EKG- Treatment ONCE
12/02/24 14:31
* Blood Bank Products Urgent
Blood Bank Products: *Plt Single Donor Leuko
Quantity: 1
Transfuse Today: Yes
Reason: Thrombocytopenia
12/02/24 14:38
Potassium Chloride [KCl] 40 meq 0.9% Sodium Chloride 250 ml [Nss] 250 ml IV NOW
12/02/24 Dinner
Clear Liquid
At Your Request: Limited, Heating Mechanic Required
Does patient need a safe tray?: No
12/02/24 15:02
Admit/Transfer Patient As Directed
Co-Sign Provider:
Level of Care: Inpatient admission
Assign to:: Telemetry
Physician / Group: ruben
Diagnosis: thrombocytopenia
Reason for Telemetry: Arrhythmia
Date to Stop Telemetry: 12/05/24
Time to Stop Telemetry: 11:00
Reason for Hospitalization: thrombocytopenia
Expected length of stay greater than two midnights?: Yes
ELOS- Estimated Length of Stay in days: 2
I certify the patient meets the requirements for IP care: Yes
PRN Pain Medication Management As Directed
May give lesser potent ordered pain med per pt: Yes
preference::
Protocol:: Medication orders for pain may be administered in a
manner that supports deferring to patient preference
when the pt is:
- Requesting an ordered lesser potent pain medication.
Least to most potent pain medications are defined
as: acetaminophen < NSAID < tramadol < opioids
(morphine, oxycodone, hydromorphone).
- Requesting a lesser dose of the same medication IF
ORDERED.
- Requesting a less intrusive route of administration
if both routes are prescribed by the provider (PO <
IV).
12/02/24 15:03
Code Status As Directed
Resuscitation Status: Full Code
12/02/24 17:07
Urinalysis Reflex To Culture Urgent
Date Specimen was Collected: 12/02/24
Time Specimen was Collected: 17:03
12/02/24 17:29
Acetaminophen [Tylenol] 1,000 mg PO Q8HPRN PRN mild pain
12/02/24 17:29
GASTROINTESTINAL CONSULT Routine
Consulting Provider: Chiquita Shell
Was physician already notified: Yes
ONCOLOGY CONSULT Routine
Consulting Provider: Zoran Olmos
Was physician already notified: Yes
Activity As Directed
Activity Level: As Tolerated
Orthostatic Vital Signs As Directed
Orthostatic VS Frequency: Now
Pneumatic Compression Sleeves As Directed
Type: Knee high
Vital Signs As Directed
Frequency: Per unit guidelines
DX Deep Vein Thrombosis Video Routine
12/02/24 17:53
B12 [Vitamin B12] Routine
Ferritin Routine
Folate Routine
Iron Routine
Magnesium Routine
TIBC [Total Iron Binding] Routine
12/02/24 20:00
Pantoprazole [Protonix IV] 40 mg IV BID
12/03/24 06:35
Complete Blood Count/With Diff IN AM
Comprehensive Metabolic Panel IN AM
12/03/24 08:00
Cholecalciferol (Vitamin D3) [VITAMIN D3 (cholecalciferol)] 25 mcg PO DAILY
Escitalopram Oxalate [Lexapro] 20 mg PO DAILY
12/05/24 11:00
DC Protocol for Telemetry ONCE
Abnormal Lab Results
12/02/24
12:36
RBC 2.73 L 10^6/uL
(4.20-5.40)
Hgb 8.7 L g/dL
(12.0-16.0)
Hct 24.6 L %
(37.0-47.0)
MCH 31.9 H pg
(27.0-31.0)
RDW 17.4 H %
(11.5-14.5)
Plt Count 8 L* 10^3/uL
(130-400)
Abs Neuts (Manual) 1.0 L 10^3/uL
(1.4-6.5)
Segmented Neutrophils 6 L %
(42-75)
Band Neutrophils 4 H %
(0-3)
Blast Cells 10 H* %
(-)
Potassium 2.8 L mmol/L
(3.5-5.1)
Carbon Dioxide 21 L mmol/L
(22-30)
Glucose 213 H mg/dl
(70-99)
Total Bilirubin 1.4 H mg/dl
(0.2-1.3)
12/02/24 12:36
12/02/24 12:36
Vital Signs
Initial and Last Documented VS:
Initial Vital Signs
Temp Pulse Resp BP Pulse Ox
36.8 C 94 16 121/57 96
12/02/24 12:13 12/02/24 12:13 12/02/24 12:13 12/02/24 12:13 12/02/24 12:13
Last Documented Vital Signs
Temp Pulse Resp BP Pulse Ox
36.5 C 79 16 98/60 96
12/03/24 19:41 12/03/24 19:41 12/03/24 19:41 12/03/24 19:41 12/03/24 19:41
*Pulse Oximetry
Patient hypoxic: no (96% room air-normal)
*Front End Driver Interpretation
Rate: normal
Interpretation: normal
Heart Rate: 80
Rhythm: sinus
*Critical Care Note
Total Time (30-74mins, 75-104mins- exclusive of procedures): Not Applicable
ED Attending Note
-
Portions of this chart may have been created with voice recognition software.� Occasional wrong word or��sound alike� substitutions may have occurred due to the inherent limitations of voice recognition software.
Discharge Plan
Departure
Patient Disposition: Admit
Date of Disposition: 12/02/24
Time of Disposition: 15:07
Presentation/result/management discussed w/ accepting MD/DO: Hospitalist
Discharge Problem:
Thrombocytopenia
Interventions
Interventions:
*Risk Screen - Suicide Last Done: 12/02/24 12:13
*General Assessment Last Done: 12/02/24 12:32
*Neglect/Abuse Screening Last Done: 12/02/24 12:13
*ED- Fall Risk Assessment Last Done: 12/02/24 12:32
*ED COVID-19 Vaccine History Last Done: 12/02/24 12:32
*Nursing Disposition Last Done: 12/02/24 17:49
ED- Cardiac Assessment Last Done: 12/02/24 12:32
ED- Neurological Assessment Last Done: 12/02/24 12:32
ED- Pulmonary Assessment Last Done: 12/02/24 12:32
Discharge Date and Time
Discharge Date/Time: 12/02/24 17:50
[2024-12-02 13:03] LABS: ALT (SGPT) 14 U/L (0-35); AST (SGOT) 21 U/L (14-36); Albumin 3.7 g/dl (3.5-5.0); Alkaline Phosphatase 58 U/L (38-126); Blood Urea Nitrogen 12 mg/dl (7-17); Calcium 8.5 mg/dl (8.4-10.2); Carbon Dioxide 21 mmol/L (22-30); Chloride 107 mmol/L (98-107); Estimated Creatinine Clearance 47 ml/min; Glucose 213 mg/dl (70-99); Potassium 2.8 mmol/L (3.5-5.1); Sodium 138 mmol/L (135-145); Total Bilirubin 1.4 mg/dl (0.2-1.3); Total Protein 6.8 g/dl (6.3-8.2); eGFR > 60.00
[2024-12-02 13:13] LABS: Hematocrit 24.6 % (37.0-47.0); Hemoglobin 8.7 g/dL (12.0-16.0); Mean Corp Hgb Conc. 35.4 g/dL (33.0-37.0); Mean Corpuscular Hgb 31.9 pg (27.0-31.0); Mean Corpuscular Volume 90.1 fL (81.0-99.0); Red Blood Cell Count 2.73 10^6/uL (4.20-5.40); Red Cell Dist. Width 17.4 % (11.5-14.5)
[2024-12-02] MEDS: NSS 500 IV (13:28)
[2024-12-02 13:43] LABS: Platelet Count 8 10^3/uL (130-400)
--- NOTE | 2024-12-02 15:10 | HPS.HSE ---
Family Physician
-
Family Physician: NOT KNOW UNKNOWN - PT DOES
Chief Complaint
-
dizziness
History of Present Illness
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
dizziness and lightheadedness. Symptoms are 2 to 3 weeks ago been progressively worsening over the past week. She has difficulty with ambulation and feels as though she could pass out. Denies headache. She has also been confused with blurry
vision. No urinary symptoms such as burning but urinating less.
She also complained of black tarry stools and diarrhea for the past week. She is having burping.
Medical History
Past Medical History
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
Past Surgical History: Reports None
Social History
Tobacco: Non-smoker
Alcohol: None
Drug: None
Family History
Family History: Not pertinent
Allergies / Home Medications
Allergies reflects when Allergies were last updated in [employer].
Home Medications with original date entered in [employer]
Allergy/Medication List:
Allergies
Allergy/AdvReac Type Severity Reaction Status Date / Time
shrimp Allergy Unknown Unknown Verified 12/02/24 12:12
Home Medications
acetaminophen 500 mg tablet (Tylenol Extra Strength) 1,000 mg PO Q8HPRN PRN mild pain 09/26/23
pantoprazole 40 mg tablet,delayed release (Protonix) 40 mg PO DAILY #30 tabs 09/28/23
bismuth subsalicylate 262 mg/15 mL oral suspension (Pepto-Bismol) 262 mg PO DAILYPRN PRN stomach issuses 12/02/24
cholecalciferol (vitamin D3) 25 mcg (1,000 unit) tablet (Vitamin D3) 25 mcg PO DAILY 12/02/24
escitalopram oxalate 20 mg tablet (Lexapro) 20 mg PO DAILY 12/02/24
Review of Systems
-
Constitutional: Reports No Symptoms
EENT: Reports No Symptoms
Respiratory: Reports See HPI
Cardiac: Reports See HPI
Abdomen/GI: Reports No Symptoms
: Reports No Symptoms
Musculoskeletal: Reports No Symptoms
Skin: Reports No Symptoms
Neurological: Reports No Symptoms
Endocrine: Reports No Symptoms
Hematologic/Lymphatic: Reports No Symptoms
Psych: Reports No Symptoms
Physical Exam
Vital Signs
Vital Signs
Temp Pulse Resp BP Pulse Ox
97.4 F 76 16 133/45 95
12/02/24 14:57 12/02/24 14:57 12/02/24 14:57 12/02/24 14:57 12/02/24 14:57
Physical Exam
General: Well Developed, Well Nourished and No Apparent Distress
HEENT: NormoCephalic, Moist mucous membranes and Atraumatic
Respiratory: Clear
Cardiac: S1/S2 and Regular Rhythm; No Murmur or Rub
GI: Soft, Non Tender, Non Distended and Normal Bowel Sounds; No Organomegaly
Rectal: Deferred by Provider
Musculoskeletal: No Clubbing, No Cyanosis and No Edema
Skin: No Rash
Neuro: Nonfocal/grossly intact
Laboratory Results
-
12/02/24 12:36
12/02/24 12:36
Laboratory Results
Total Bilirubin 1.4 mg/dl (0.2-1.3) H 12/02/24 12:36
AST 21 U/L (14-36) 12/02/24 12:36
ALT 14 U/L (0-35) 12/02/24 12:36
Alkaline Phosphatase 58 U/L (38-126) 12/02/24 12:36
Data Reviewed
-
Lab Data: Labs Reviewed by me
Old Records: Reviewed
Impression/Plan
-
IMPRESSION:
PLAN:
# Dizziness likely secondary to anemia/acute blood loss upper GI bleeding
# History of GERD/hiatal hernia
-Check orthostatic vital signs
CT head pending
-Urinalysis pending
- Blood loss likely exacerbated by thrombocytopenia
# Acute on chronic normocytic anemia
# History of iron deficiency/B12 deficiency
- Check iron studies, B12 and folate
- Fecal occult shows trace heme positive stool
- Protonix 40 IV twice daily
-Clear liquid diet
- GI consulted
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
- Platelets of 8
-1 unit platelet transfusion
- Hematology consulted
# Hypokalemia may be malabsorption
-Potassium 2.8
-May be due to PPI
-Replete potassium
- Check magnesium
Depression
- Continue Lexapro
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
History of Klebsiella bacteremia
Hyperlipidemia
Full code
DVT prophylaxis�SCDs
Clear liquid diet
[2024-12-02] MEDS: KCL 270 MEQ IV (15:44)
--- NOTE | 2024-12-02 16:11 | CON.GI ---
Addendum entered and electronically signed by Chiquita Shell MD 12/02/24 17:49:
The patient was seen and examined by me independently in collaboration with the nurse practitioner.
Past medical history/social history/medications/allergies/family history reviewed.
Lab data and imaging data reviewed.
83-year-old female past medical history as below prior admission in 2022 for iron deficiency anemia with heme positive stool where I did an endoscopy and colonoscopy as below with no clear etiology and recommended capsule endoscopy (discussion of
patency also discussed as prior history of anastomosis), had repeat admission approximately 10 months later with iron deficiency anemia and again had a repeat endoscopy but this time showed Juan Jose lesions and a 10 site on lateral hernia sac as well
as a superficial duodenal ulcer.
Patient now presenting with dizziness over the last 2 to 3 weeks and reports of confusion. She has been having melena for the last 2 weeks which has progressively gotten worse and more frequent. She has been having 4 bowel movements a day. She
does take Pepto-Bismol twice a week. She does elicit some weight loss. Also some nausea. Denies any abdominal pain. She was found to have a platelet count of 8 as well as hemoglobin of 8.7.
Suspect GI bleeding could be multifactorial including mucosal bleeding from severe thrombocytopenia, could have recurrent Juan Jose lesions, history of duodenal ulcer as well as this was superficial, could also have a small bowel bleed.
Unfortunately, with such severe thrombocytopenia, our interventions would be limited. Plan for PPI twice daily. Consider upper endoscopy when platelet count over 50,000. Will also need likely need capsule endoscopy with patency outpatient. Hold
Pepto for now. Follow-up hematology recommendations.
Original Note:
Consultation
-
Date/Time Consultation Requested: 12/02/24 1515
Date/Time Consultation Performed: 12/02/24 1615
Requesting Provider: Darrel Metzger DO
Performing Provider: MINGO Robles, Cathie Shell MD
Reason for Consultation: anemia, pancytopenia
Medical History
Chief Complaint / HPI
Chief Complaint: dizziness
History of Present Illness:
Pt is an 83yo with hx hypercholesterolemia, anxiety/depression, FAWAD, adenomatous colon polyps, lundy's, bells palsy klebsiella bacteremia 2022, bowel resection for diverticulitis, prior jose, hysterectomy with onset of dizziness over last 2-3
weeks. Per family also noted with some confusion. She also reports diarrhea and tarry stools over last week. On admission noted with hbg 8.7 with MCV 90, WBC 10,000 and platelets of 8,000. Prior counts 09/2023 with WBC 5,100, hbg 9.9, platelets
170. Pt with prior GI work up over last 2 years noted below. She was recommended if hbg not improving to consider capsule with patency capsule first with concern for anastomosis in small bowel on imaging but pt did not proceed.
At this time pt admits to black stools over last week and some diarrhea at times. She also admits to belching. She denies odynophagia, dysphagia, GERD, constipation, or red stools. + occasional NSAID use and pepto noted med list.
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
Colonoscopy: 12/2022 Protano initially poor prep but repeat with 6 mm polyp rectosigmoid, diverticulosis and internal hemorrhoids bx with TA polyp
EGD 09/2023- [facility] - Z-line irregular, 32 cm from the incisors.
- 10 cm hiatal hernia with multiple Juan Jose ulcers.
- Non-bleeding duodenal ulcer with no stigmata of
bleeding.
- Biopsies were taken with a cold forceps for
Helicobacter pylori testing.
- Biopsies were taken with a cold forceps for
evaluation of celiac disease.
bx mild chronic gastritis, and foveolar hyperplasia neg H pylori
Past Medical History
Past Medical History: Hypercholesterolemia, Psychiatric (anxiety/depression) and Other (FAWAD, klebsiella bacteremia 12/2022, adenomatous colon polyps, lundy's, bells palsy)
Past Surgical History: Bowel Resection (for diverticulitis), Cholecystectomy, Gynecological (hysterectomy) and Orthopedic (TKR)
Social History
Tobacco: Non-Smoker
Alcohol: None
Drug: None
Living: Alone
Employment: Retired
Family History
Family History: Other (no family hx colon CA or polyps )
Allergies / Home Medications
Allergy/AdvReac Type Severity Reaction Status Date / Time
shrimp Allergy Unknown Unknown Verified 12/02/24 12:12
�Medication �Instructions �Recorded
acetaminophen 500 mg tablet 1,000 mg PO Q8HPRN PRN mild pain 09/26/23
(Tylenol Extra Strength)
pantoprazole 40 mg tablet,delayed 40 mg PO DAILY #30 tabs 09/28/23
release (Protonix)
bismuth subsalicylate 262 mg/15 mL 262 mg PO DAILYPRN PRN stomach 12/02/24
oral suspension (Pepto-Bismol) issuses
cholecalciferol (vitamin D3) 25 25 mcg PO DAILY 12/02/24
mcg (1,000 unit) tablet (Vitamin
D3)
escitalopram oxalate 20 mg tablet 20 mg PO DAILY 12/02/24
(Lexapro)
Review of Systems
-
History Source: Patient
Constitutional: Reports Weight Loss (possible few lbs - 5 kg since 2022 )
EENT: Reports No Symptoms
Respiratory: Reports No Symptoms
Cardiac: Reports No Symptoms
Abdomen/GI: Reports Diarrhea and Black Stools
: Reports No Symptoms
Musculoskeletal: Reports No Symptoms
Skin: Reports No Symptoms
Neurological: Reports Dizzy and Other (forgetfulness )
Endocrine: Reports No Symptoms
Hematologic/Lymphatic: Reports No Symptoms
Vital Signs
Temp Pulse Resp BP Pulse Ox
98.3 F 76 16 124/52 94
12/02/24 15:16 12/02/24 15:16 12/02/24 15:16 12/02/24 15:16 12/02/24 15:16
Physical Exam
Exam
General: Well Developed, Well Nourished and No Apparent Distress
HEENT: Normocephalic and Anicteric
Respiratory: Clear
Cardiac: Regular Rhythm
GI: Soft, Non Tender and Non Distended
Musculoskeletal: No Clubbing and No Cyanosis
Skin: Warm and Dry
Neuro: Awake, Alert and AO x 3 (occasional forgetness )
Psych: Calm
Results
WBC 10.0 10^3/uL (4.8-10.8) 12/02/24 12:36
Hgb 8.7 g/dL (12.0-16.0) L 12/02/24 12:36
Hct 24.6 % (37.0-47.0) L 12/02/24 12:36
MCV 90.1 fL (81.0-99.0) 12/02/24 12:36
Plt Count 8 10^3/uL (130-400) L* 12/02/24 12:36
Sodium 138 mmol/L (135-145) 12/02/24 12:36
Potassium 2.8 mmol/L (3.5-5.1) L 12/02/24 12:36
Chloride 107 mmol/L (98-107) 12/02/24 12:36
Carbon Dioxide 21 mmol/L (22-30) L 12/02/24 12:36
BUN 12 mg/dl (7-17) 12/02/24 12:36
Creatinine 0.9 mg/dL (0.6-1.0) 12/02/24 12:36
Calcium 8.5 mg/dl (8.4-10.2) 12/02/24 12:36
Total Bilirubin 1.4 mg/dl (0.2-1.3) H 12/02/24 12:36
AST 21 U/L (14-36) 12/02/24 12:36
ALT 14 U/L (0-35) 12/02/24 12:36
Alkaline Phosphatase 58 U/L (38-126) 12/02/24 12:36
Diagnostic Image Results:
12/02/24 HCT
No acute intracranial abnormalities.
Findings compatible with diffuse cortical atrophy with nonspecific white matter changes as described above.
01/07/23 CT Abd/pelvis Wo Iv Cont
1). There is no evidence of acute pathology in the abdomen or pelvis.
2). Nonurgent findings include:
-Dependent atelectasis at the posterior lung bases.
-Cholecystectomy
-Bowel anastomosis at the distal ileum, ileocolic junction and distal sigmoid colon
- 8.5 cm left anterior pelvic wall hernia which contains only fat.
-Multilevel degenerative disc disease with 4 mm grade 1 spondylolisthesis of L3 on L4
-Old 20% compression fracture of the superior endplate of T12
Prior GI Procedures:
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
Colonoscopy: 12/2022 Protano initially poor prep but repeat with 6 mm polyp rectosigmoid, diverticulosis and internal hemorrhoids bx with TA polyp
EGD 09/2023- [facility] - Z-line irregular, 32 cm from the incisors.
- 10 cm hiatal hernia with multiple Juan Jose ulcers.
- Non-bleeding duodenal ulcer with no stigmata of
bleeding.
- Biopsies were taken with a cold forceps for
Helicobacter pylori testing.
- Biopsies were taken with a cold forceps for
evaluation of celiac disease.
bx mild chronic gastritis, and foveolar hyperplasia neg H pylori
Assessment / Plan
-
Pt is an 83yo with hx hypercholesterolemia, anxiety/depression, FAWAD, B12 deficiency, adenomatous colon polyps, lundy's, bells palsy klebsiella bacteremia 2022, bowel resection for diverticulitis, prior jose, hysterectomy with onset of dizziness
over last 2-3 weeks. Per family also noted with some confusion. She also reports diarrhea and tarry stools over last week. On admission noted with hbg 8.7 with MCV 90, WBC 10,000 and platelets of 8,000. Prior counts 09/2023 with WBC 5,100, hbg
9.9, platelets 170. Pt with prior GI work up over last 2 years noted below. She was recommended if hbg not improving to consider capsule with patency capsule first with concern for anastomosis in small bowel on imaging but pt did not proceed.
At this time pt admits to black stools over last week and some diarrhea at times. She also admits to belching. She denies odynophagia, dysphagia, GERD, constipation, or red stools.
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
Colonoscopy: 12/2022 Protano initially poor prep but repeat with 6 mm polyp rectosigmoid, diverticulosis and internal hemorrhoids bx with TA polyp
EGD 09/2023- [facility] - Z-line irregular, 32 cm from the incisors- 10 cm hiatal hernia with multiple Juan Jose ulcers. - Non-bleeding duodenal ulcer with no stigmata of
bleeding - Biopsies were taken with a cold forceps for Helicobacter pylori testing - Biopsies were taken with a cold forceps for evaluation of celiac disease.
Problem list:
-anemia
-severe thrombocytopenia
-report of black stools
-b12 deficiency
-known 10 cm hiatal hernia
Other pertinent medical hx:
- hx lundy's
-adenomatous polyps
-klebsiella bacteremia
-hx diverticulitis s/p bowel resection in 2015
-anxiety/depression
-HLD
-car's palsy
Recommendations:
Etiology of anemia unclear may be oozing wit hx juan jose lesion with hx 10cm HH vs PUD, ectasia with noted hx with B12 deficiency and now severe thrombocytopenia
hx EGD/colon 12/2022 with lundy's, HH and adenomatous polyp, repeat EGD 2023 juan jose lesions, non bleeding DU
await heme eval as primary issue is severe thrombocytopenia
trend hbg/platelets transfuse as needed
PPI BID and will need to continued with hx lundy's
hold pepto
NSAID avoidance
trend hbg
monitor for signs of aggressive bleeding but very limited in GI intervention with severe thrombocytopenia
-
-
Thank you for consultation and allowing me to participate in the patient's care. Please call the early education teacher GI physician during the after hours with any questions or concerns.
[2024-12-02 17:41] LABS: Urine Albumin 2+ (Neg - Trace); Urine Bilirubin Negative (Negative); Urine Character Cloudy (Clear); Urine Color Yellow; Urine Glucose Negative (Negative); Urine Ketone Negative (Negative); Urine Leukocyte 3+ (Negative); Urine Nitrite Positive (Negative); Urine Occult Blood 2+ (Negative); Urine Specific Gravity 1.015 (<1.030); Urine Urobilinogen Negative (Neg - 1+)
[2024-12-02 18:17] LABS: Urine Bacteria Many (Negative); Urine Red Blood Cell 21-25 /HPF (0-2); Urine Squamous Cell 16-20 /LPF (Few); Urine White Cell 30-40 /HPF (0-5)
[2024-12-02 18:21] LABS: Iron 82 ug/dl (37-170); Magnesium 1.7 mg/dl (1.6-2.3)
[2024-12-02 18:30] LABS: Percent Saturation 33 % (20-50); Total Iron Binding Capacity 242 ug/dl (265-497)
--- NOTE | 2024-12-02 19:15 | PTCARENOTE ---
Pt received from day shift RN at 1915. Pt AAOx3, and VSS. Pt receptive to room and call car. Pt bed in lowest position and call car within reach. Pt educated on importance of call car usage, pt relays understanding and cooperation. Will continue
with current plan of care.
[2024-12-02 19:28] LABS: Folate 7.6 ng/ml (2.76-20); Vitamin B12 981 pg/ml (239-931)
[2024-12-02] MEDS: PROTONIX IV 40 MG IV (20:07)
[2024-12-02] MEDS: NSS (PRESERVATIVE FREE) 10 ML IV (20:12)
[2024-12-03] VITALS (8 sets, daily range): BP systolic 97–111; BP diastolic 42–90; BMI 28.3
[2024-12-03] MEDS: TYLENOL 1000 MG PO ×3 (03:25→20:04)
--- NOTE | 2024-12-03 04:18 | DOWNTIME ---
Addendum entered by Erin Silverman RN 12/03/24 14:22:
Correction: Downtime was 12/03/2024 from 0100 to 12/03/2024 at 0415
Original Note:
There was a [facility] Client Call Center Supervisor Downtime on 12/02/2024 from 0100 to 12/03/2024 at 0415. Downtime documentation of patient's care, including medication administrations, has been reconciled in the electronic record per guidelines. Refer to the
patient's paper chart under the miscellaneous tab to see printed paper medication records and downtime forms.
[2024-12-03 07:51] LABS: Hematocrit 20.2 % (37.0-47.0); Hemoglobin 7.2 g/dL (12.0-16.0); Mean Corp Hgb Conc. 35.6 g/dL (33.0-37.0); Mean Corpuscular Hgb 33.2 pg (27.0-31.0); Mean Corpuscular Volume 93.1 fL (81.0-99.0); Platelet Count 16 10^3/uL (130-400); Red Blood Cell Count 2.17 10^6/uL (4.20-5.40); Red Cell Dist. Width 17.7 % (11.5-14.5); White Blood Cell Count 12.3 10^3/uL (4.8-10.8)
[2024-12-03 08:19] LABS: ALT (SGPT) < 10 U/L (0-35); AST (SGOT) 18 U/L (14-36); Albumin 2.9 g/dl (3.5-5.0); Alkaline Phosphatase 46 U/L (38-126); Blood Urea Nitrogen 10 mg/dl (7-17); Calcium 7.6 mg/dl (8.4-10.2); Carbon Dioxide 24 mmol/L (22-30); Chloride 109 mmol/L (98-107); Estimated Creatinine Clearance 53 ml/min; Glucose 117 mg/dl (70-99); Potassium 3.4 mmol/L (3.5-5.1); Sodium 137 mmol/L (135-145); Total Bilirubin 1.4 mg/dl (0.2-1.3); Total Protein 5.6 g/dl (6.3-8.2); eGFR > 60.00
[2024-12-03] MEDS: NSS (PRESERVATIVE FREE) 10 ML IV ×2 (08:21→20:03)
[2024-12-03] MEDS: PROTONIX IV 40 MG IV ×2 (08:21→20:04)
[2024-12-03] MEDS: LEXAPRO 20 MG PO (08:21)
[2024-12-03] MEDS: VITAMIN D3 (cholecalciferol) 25 MCG PO (08:21)
--- NOTE | 2024-12-03 08:49 | W.PN.GI.CBS2 ---
Today's Communication / Plan
-
signing off, follow up hematology
Assessment / Plan
-
83-year-old female prior admission in 2022 for iron deficiency anemia with heme positive stool where I did an endoscopy and colonoscopy as below with no clear etiology and recommended capsule endoscopy (discussion of patency also discussed as prior
history of anastomosis), had repeat admission approximately 10 months later with iron deficiency anemia and again had a repeat endoscopy but this time showed Juan Jose lesions and a 10 mm hiatal hernia sac as well as a superficial duodenal ulcer.
Patient now presenting with dizziness over the last 2 to 3 weeks and reports of confusion. She has been having melena for the last 2 weeks which has progressively gotten worse and more frequent. She has been having 4 bowel movements a day. She
does take Pepto-Bismol twice a week. She does elicit some weight loss. Also some nausea. Denies any abdominal pain. She was found to have a platelet count of 8 as well as hemoglobin of 8.7.
Suspect GI bleeding could be multifactorial including mucosal bleeding from severe thrombocytopenia, could have recurrent Juan Jose lesions, history of duodenal ulcer as well as this was superficial, could also have a small bowel bleed.
Unfortunately, with such severe thrombocytopenia, our interventions would be limited. Plan for PPI twice daily total of 8 weeks then daily. Can consider upper endoscopy when platelet count over 50,000. Could also consider capsule endoscopy with
patency outpatient. Hold Pepto for now. Follow-up hematology recommendations.
GI will sign off. Please call if ongoing melena after correction of platelets.
Subjective
Subjective
Date of Service: December 03, 2024
no events overnight
Objective
Data Reviewed
Laboratory Data:
Laboratory Results
12/03/24 06:35
12/03/24 06:35
Laboratory Results
Magnesium 1.7 mg/dl (1.6-2.3) 12/02/24 17:53
Total Bilirubin 1.4 mg/dl (0.2-1.3) H 12/03/24 06:35
AST 18 U/L (14-36) 12/03/24 06:35
ALT < 10 U/L (0-35) 12/03/24 06:35
Alkaline Phosphatase 46 U/L (38-126) 12/03/24 06:35
Vital Signs and I&O:
Vital Signs
Temp Pulse Resp BP Pulse Ox
98 F 67 16 103/45 97
12/03/24 07:00 12/03/24 07:00 12/03/24 07:00 12/03/24 07:00 12/03/24 07:00
I&O
12/02/24 12/03/24 12/04/24
06:59 06:59 06:59
Intake Total 367 / 367
Balance 367 / 367
Physical Exam
Physical Exam
GI: Non Distended and Non Tender
--- NOTE | 2024-12-03 08:57 | W.PN.HOSP.TC ---
Today's Communication/Plan
-
see outlined plan
Assessment / Plan
Assessment / Plan
Assessment:
Acute blood loss anemia exacerbated by acute severe thrombocytopenia
acute Symptomatic anemia (dizziness) on chronic anemia (from iron deficiency and b12 deficiency)
Underlying history of GERD/Mojica esophagus, Juan Jose lesions and PUD
- GI consulted. continue PPI BID. No role for EGD with degree of thrombocytopenia
- diet: clears
- Heme onc consulted
- transfuse 1 unit PRBC
- s/p 1 pack platelets
- follow CBC
- eventual IV iron
Acute hypoxic respiratory insufficiency on 3L NC
Febrile illness
- check CXR
Abnormal UA
- start Rocephin, day 1 pending culture
Hypokalemia may be malabsorption
- replete prn
Depression
- Continue Lexapro
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
History of Klebsiella bacteremia
Hyperlipidemia
DVT ppx: SCDs
Code: Full
Anticipated Discharge: > 48 hours
Subjective/Interval History
-
Date of Service: December 03, 2024
reports shortness of breath, no cough, fever this morning
on 3L [place]
No evidence of fresh bleeding overnight; did receive 1unit platelets
Objective Data
-
Labs:
Laboratory Results
12/03/24
06:35
WBC 12.3 H
Hgb 7.2 L
Hct 20.2 L*
Plt Count 16 L* D
Sodium 137
Potassium 3.4 L
Chloride 109 H
Carbon Dioxide 24
BUN 10
Creatinine 0.8
Glucose 117 H
Calcium 7.6 L
Total Bilirubin 1.4 H
AST 18
ALT < 10
Alkaline Phosphatase 46
Vital Signs:
Vital Signs
Temp Pulse Resp BP Pulse Ox
98 F 67 16 103/45 97
12/03/24 07:00 12/03/24 07:00 12/03/24 07:00 12/03/24 07:00 12/03/24 07:00
I&O
12/02/24 12/03/24 12/04/24
06:59 06:59 06:59
Intake Total 367 / 367
Balance 367 / 367
Physical Exam
-
General: No Apparent Distress
HEENT: Normocephalic and Atraumatic
Respiratory: Crackles; Negative Wheezes
Cardiac: Regular Rhythm and S1/S2
GI: Soft
Genito-urinary: No Costovertebral Tender
Neuro: AO x 3
Psych: Calm
Data Reviewed
-
Total Time Spent with Patient (in minutes): 45
Labs: Labs Reviewed by me
[2024-12-03] MEDS: STERILE WATER FOR INJECTION 10 ML IV (09:11)
[2024-12-03] MEDS: ROCEPHIN 1000 MG IV (09:11)
[2024-12-03] MEDS: KCL 40 MEQ PO (09:34)
--- NOTE | 2024-12-03 10:10 | CON.ONC ---
Impression
Impression
Patient is a 83-year-old female with past medical history of chronic iron deficiency anemia and B12 deficiency presenting with lightheadedness and melena for the past 2 weeks. Platelet 8, and hgb 8.7 on admission.
#Acute thrombocytopenia
- Platelet count today 16 s/p 1unit plt transfusion.
- Baseline platelet count around 170. 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
- Recommend Dexa 40mg daily IV for 4 days for treatment of ITP.
- Continue PPI BID. GI holding back on any interventions until plt > 50,000.
- No NSAIDS, anticoagulants or antiplatelets if plt count< 50,000
#Acute on chronic anemia
- Hgb dropped from 8.7 to 7.2.
- Transfuse pRBC if Hgb drops to less than 7.
- Peripheral blood smear reviewed with Dr. Kline, which shows around 10% blasts and 23% promyelocytes. BM biopsy recommended.
- Patient is currently not in blast crisis. BMB should be done in the next few days as inpatient or outpatient.
- Will order peripheral blood cytometry.
- Cont to monitor CBC and VS closely.
#Acute hypoxic respiratory insufficiency
#Febrile illness
#Abnormal UA
- Management per primary team
FULL CODE
Plan
Plan
Dexa 40mg daily IV for 4 days for treatment of ITP
No NSAIDS, anticoagulants or antiplatelets if plt count< 50,000
Peripheral blood cytometry
BMB in the next few days as inpatient vs outpatient
Transfuse pRBC if Hgb <7
Patient History
History of Present Illness
Patient is a 83-year-old female with past medical history of chronic iron deficiency anemia and B12 deficiency. Patient is currently presenting with complaints of lightheadedness for the past 2 weeks. Also reports tarry stools since around 2 weeks
ago which has progressively became more frequent and believes has resulted in weight loss. Initial labs in the ED showed platelet 8, Hgb 8.7 with MCV 90, and hypokalemia. Fecal occult showed trace heme positive stool. GI was consulted and patient
was started on Protonix 40 IV. Prior GI workup in September 2023 had shown 10 cm hiatal hernia with multiple Juan Jose lesions as well as a non-bleeding duodenal ulcer on endoscopy. Baseline labs show platelet count to be around 170 and Hgb to be in the
9-10 range.
We have been consulted for the evaluation of severe thrombocytopenia.
Past-Medical/Surgical History
chronic iron deficiency anemia, B12 deficiency, hiatal hernia, depression, chronic left-sided facial droop secondary to Mercado's palsy, Klebsiella bacteremia, hyperlipidemia
Patient Medication
�Medication �Instructions �Recorded �Confirmed �Last Taken �Type
acetaminophen 500 mg tablet 1,000 mg PO Q8HPRN PRN mild pain 09/26/23 12/02/24 09/25/23 History
(Tylenol Extra Strength)
pantoprazole 40 mg tablet,delayed 40 mg PO DAILY #30 tabs 09/28/23 12/02/24 12/01/24 Rx
release (Protonix)
bismuth subsalicylate 262 mg/15 mL 262 mg PO DAILYPRN PRN stomach 12/02/24 12/02/24 12/01/24 History
oral suspension (Pepto-Bismol) issuses
cholecalciferol (vitamin D3) 25 25 mcg PO DAILY 12/02/24 12/02/24 12/01/24 History
mcg (1,000 unit) tablet (Vitamin
D3)
escitalopram oxalate 20 mg tablet 20 mg PO DAILY 12/02/24 12/02/24 12/01/24 History
(Lexapro)
Active Medications
Generic Name Dose Route Start Last Admin
Trade Name Freq PRN Reason Stop Dose Admin
Acetaminophen 1,000 mg 12/03/24 09:39 12/03/24 09:45
Acetaminophen 500 Mg Tablet PO 12/31/24 09:37 1,000 mg
Q6HPRN PRN Administration
mild pain
Ceftriaxone Sodium 1,000 mg 12/03/24 10:00 12/03/24 09:11
Ceftriaxone 1000 Mg / 10 Ml Vial IV 1,000 mg
Q24H LEONEL Administration
Cholecalciferol 25 mcg 12/03/24 08:00 12/03/24 08:21
Cholecalciferol (Vitamin D3) 25 Mcg Tablet (1,000 Units) PO 12/31/24 07:59 25 mcg
DAILY LEONEL Administration
Escitalopram Oxalate 20 mg 12/03/24 08:00 12/03/24 08:21
Escitalopram 20 Mg Tablet PO 12/31/24 07:59 20 mg
DAILY LEONEL Administration
Pantoprazole Sodium 40 mg 12/02/24 20:00 12/03/24 08:21
Pantoprazole Sodium 40 Mg/10 Ml Vial IV 12/30/24 19:59 40 mg
BID LEONEL Administration
Sodium Chloride 0 flush 12/02/24 18:00
Sodium Chloride 0.9% (Flush) Syringe IV 12/30/24 17:59
PER PROTOCOL LEONEL
Sodium Chloride 10 ml 12/02/24 20:00 12/03/24 08:21
Sodium Chloride 0.9% (Preservative Free) 10 Ml Vial IV 12/30/24 19:59 10 ml
BID LEONEL Administration
Sterile Water 10 ml 12/03/24 10:00 12/03/24 09:11
Sterile Water For Injection 10 Ml Vial IV 12/31/24 09:59 10 ml
Q24H LEONEL Administration
Review of Systems
-
History Source: Patient
Constitutional: Reports Weight Loss and Fatigue; Denies Night Sweats
Respiratory: Denies No Symptoms
Cardiac: Denies No Symptoms
GI: Reports Bloody Stools and Bloated; Denies Abdominal Pain
: Denies No Symptoms
Musculoskeletal: Denies No Symptoms
Skin: Denies No Symptoms
Neuro: Reports Dizzy and Lightheadedness
Physical Exam
-
General: Well Developed, Well Nourished and Comfortable
HEENT: Moist Mucous Membranes
Cardiology: Normal Sinus Rhythm, S1 and S2
Pulmonary: Clear
GI: Soft and Normal Bowel Sounds
Rectal: Hem Positive
Musculoskeletal: No Clubbing, No Cyanosis and No Edema
Extremities: Pulses Present
Neurology: No Lateralizing Symptoms
Skin: Warm and Dry
Labs
Lab Results
WBC 12.3 10^3/uL (4.8-10.8) H 12/03/24 06:35
RBC 2.17 10^6/uL (4.20-5.40) L 12/03/24 06:35
Hgb 7.2 g/dL (12.0-16.0) L 12/03/24 06:35
Hct 20.2 % (37.0-47.0) L* 12/03/24 06:35
MCV 93.1 fL (81.0-99.0) 12/03/24 06:35
MCH 33.2 pg (27.0-31.0) H 12/03/24 06:35
MCHC 35.6 g/dL (33.0-37.0) 12/03/24 06:35
RDW 17.7 % (11.5-14.5) H 12/03/24 06:35
Plt Count 16 10^3/uL (130-400) L* D 12/03/24 06:35
MPV Not Reportable 12/03/24 06:35
Creatinine 0.8 mg/dL (0.6-1.0) 12/03/24 06:35
Vital Signs
Vital Signs
Temp Pulse Resp BP Pulse Ox
98 F 67 16 103/45 97
12/03/24 07:00 12/03/24 07:00 12/03/24 07:00 12/03/24 07:00 12/03/24 07:00
[2024-12-03] MEDS: DECADRON 60 MG IV (11:47)
--- NOTE | 2024-12-03 12:30 | CM ---
Patient seen bedside, initial assessment completed. Patient is a 83-year-old female past medical history of multifactorial anemia, iron deficiency anemia, B12 deficiency, hiatal hernia, depression, chronic left-sided facial droop secondary to Mercado's
palsy, Klebsiella bacteremia, hyperlipidemia, presenting with dizziness and lightheadedness.
Patient resides alone in a 2nd floor independent living apartment at [facility], elevator access. Independent in all areas, no DME. No SNF/HC hx reported.
Address, points of contact and insurance verified
PCP: Marissa Contreras
Pharmacy: [facility] ([facility])
PT/OT eval when able
Plan: CM will cont to follow for d/c planning
[2024-12-03 13:48] LABS: Band Neutrophils 4 % (0-3); Lymphocytes 33 % (20-51); Monocytes 5 % (2-9); Segmented Neutrophils 6 % (42-75)
[2024-12-03 13:49] LABS: Atypical Lymphocytes 12 %; Metamyelocytes 7 % (-); Promyelocytes 23 % (-)
[2024-12-03 13:50] LABS: Normal RBC Morphology Yes; Platelets Checked Yes; Total Cells Counted 100
[2024-12-03 13:54] LABS: Absolute Neutrophils -Man Diff 1.4 10^3/uL (1.4-6.5); Band Neutrophils 0 % (0-3); Lymphocytes 28 % (20-51); Segmented Neutrophils 12 % (42-75)
[2024-12-03 13:55] LABS: Atypical Lymphocytes 10 %; Metamyelocytes 4 % (-); Monocytes 16 % (2-9); Myelocytes 4 % (-); Normal RBC Morphology No; Platelets Checked Yes; Promyelocytes 14 % (-)
[2024-12-03 13:56] LABS: Anisocytosis 1+; Hypochromasia 1+; Microcytosis 1+; Ovalocytes 1+
[2024-12-03 13:58] LABS: Total Cells Counted 100
[2024-12-03 14:01] LABS: Blasts 10 % (-)
[2024-12-03 14:02] LABS: Blasts 12 % (-)
[2024-12-04] VITALS (8 sets, daily range): BP systolic 102–140; BP diastolic 48–67; BMI 27.5
[2024-12-04] MEDS: LEXAPRO 20 MG PO (07:54)
[2024-12-04] MEDS: NSS (PRESERVATIVE FREE) 10 ML IV ×2 (07:54→20:29)
[2024-12-04] MEDS: VITAMIN D3 (cholecalciferol) 25 MCG PO (07:54)
[2024-12-04] MEDS: PROTONIX IV 40 MG IV ×2 (07:54→20:29)
[2024-12-04 07:55] LABS: Hematocrit 26.1 % (37.0-47.0); Hemoglobin 9.1 g/dL (12.0-16.0); Mean Corp Hgb Conc. 34.9 g/dL (33.0-37.0); Mean Corpuscular Hgb 31.2 pg (27.0-31.0); Mean Corpuscular Volume 89.4 fL (81.0-99.0); Red Blood Cell Count 2.92 10^6/uL (4.20-5.40); Red Cell Dist. Width 18.8 % (11.5-14.5); White Blood Cell Count 9.7 10^3/uL (4.8-10.8)
[2024-12-04 07:56] LABS: Platelet Count 12 10^3/uL (130-400)
[2024-12-04 08:11] LABS: Blood Urea Nitrogen 15 mg/dl (7-17); Calcium 8.2 mg/dl (8.4-10.2); Carbon Dioxide 24 mmol/L (22-30); Chloride 110 mmol/L (98-107); Estimated Creatinine Clearance 60 ml/min; Glucose 163 mg/dl (70-99); Sodium 141 mmol/L (135-145); eGFR > 60.00
[2024-12-04] MEDS: STERILE WATER FOR INJECTION 10 ML IV (09:33)
[2024-12-04] MEDS: ROCEPHIN 1000 MG IV (09:33)
[2024-12-04] MEDS: DECADRON 60 MG IV (09:45)
--- NOTE | 2024-12-04 10:11 | W.PN.ONC ---
Today's Communication / Plan
-
Cont Dexa 40mg daily IV for total of 4 doses
BMB potentially on Sunday as outpatient
Transfuse 1unit of standard platelets
Impression
Impression
Patient is a 83-year-old female with past medical history of chronic iron deficiency anemia and B12 deficiency presenting with lightheadedness and melena for the past 2 weeks. Platelet 8, and hgb 8.7 on admission.
#Acute thrombocytopenia
- s/p 1unit plt transfusion.
- Baseline platelet count around 170.
- Received second dose of Dexa 40mg daily IV today- to be continued for total of 4 doses to treat possible ITP
- Platelet count today slightly dropped from 16 to 12.
- No NSAIDS, anticoagulants or antiplatelets if plt count< 50,000.
- Threshold for plt transfusion given patient being febrile in current admission is 20,000- transfuse 1unit standard platelets today
- Continue PPI BID. GI holding back on any interventions until plt > 50,000.
#Acute on chronic anemia
- Hgb dropped from 8.7 to 7.2. Now back to 9.1 s/p 1unit pRBC
- Transfuse pRBC if Hgb drops to less than 7.
- Peripheral blood smear reviewed with Dr. Kline, which showed around 10% blasts and 23% promyelocytes. BM biopsy recommended.
- Patient is currently not in blast crisis and left shift improving (on steroids). BMB could be done next week as outpatient.
- Peripheral blood cytometry-pending, will follow with pathology
- Ordered retic count
- Cont to monitor CBC and VS closely.
#Acute hypoxic respiratory insufficiency
#Febrile illness
#Abnormal UA
- Management per primary team
FULL CODE
Plan
Plan
Cont Dexa 40mg daily IV for total of 4 doses (today is second dose)
No NSAIDS, anticoagulants or antiplatelets if plt count< 50,000
Threshold for plt transfusion given patient being febrile in current admission is 20,000
Peripheral blood cytometry-pending, will follow up with pathology
BMB next week as outpatient
Transfuse pRBC if Hgb <7
Subjective/Objective
Subjective/Objective
Vital Signs:
Vital Signs
Temp Pulse Resp BP Pulse Ox
97.5 F 90 16 109/62 96
12/04/24 07:30 12/04/24 07:30 12/04/24 07:30 12/04/24 07:30 12/04/24 07:30
Lab Results:
Laboratory Data
WBC 9.7 10^3/uL (4.8-10.8) 12/04/24 06:51
Hgb 9.1 g/dL (12.0-16.0) L D 12/04/24 06:51
Plt Count 12 10^3/uL (130-400) L* D 12/04/24 06:51
eGFR > 60.00 12/04/24 06:51
Orders
Orders
Orders From Last 24 Hours
12/03/24 12:00
Dexamethasone Sod Phosphate [Decadron] 40 mg 0.9% Sodium Chloride 50 ml [Nss] 50 ml IV DAILY
12/03/24 12:02
Leukemia/Lymphoma Phenotyping [S] Routine
12/04/24 10:10
Reticulocyte Count Routine
[2024-12-04 10:23] LABS: Absolute Neutrophils -Man Diff 3.9 10^3/uL (1.4-6.5); Anisocytosis 1+; Band Neutrophils 7 % (0-3); Hypochromasia 1+; Lymphocytes 31 % (20-51); Metamyelocytes 3 % (-); Monocytes 12 % (2-9); Myelocytes 8 % (-); Normal RBC Morphology No; Platelets Checked Yes; Segmented Neutrophils 34 % (42-75); Total Cells Counted 100
[2024-12-04 10:24] LABS: Blasts 5 % (-); Ovalocytes Slight
[2024-12-04 10:33] LABS: Reticulocyte Count 0.8 % (0.4-2.8)
--- NOTE | 2024-12-04 11:26 | W.PN.HOSP.TC ---
Today's Communication/Plan
-
continue steroids
follow hematology workup and recs
wean O2
Assessment / Plan
Assessment / Plan
Assessment:
Acute blood loss anemia exacerbated by acute severe thrombocytopenia
acute Symptomatic anemia (dizziness) on chronic anemia (from iron deficiency and b12 deficiency)
Underlying history of GERD/Mojica esophagus, Juan Jose lesions and PUD
- GI consulted. continue PPI BID. No role for EGD with degree of thrombocytopenia
- diet: regular
- Heme onc consulted; concern for possible AML. Flow cytometry pending.
- s/p 1 unit 1 unit PRBC
- s/p 1 pack platelets
- continue steroids and assess response
- eventual Bone marrow biopsy
- follow CBC
Acute hypoxic respiratory insufficiency on 3L NC
Febrile illness
- CXR: Mild cardiomegaly. Pulmonary vascularity within the limits of normal.
- wean O2 as able
Abnormal UA
- continue Rocephin, day 2/3
- mixed ryan on culture
Hypokalemia may be malabsorption
- replete prn
Depression
- Continue Lexapro
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
History of Klebsiella bacteremia
Hyperlipidemia
DVT ppx: SCDs
Code: Full
Anticipated Discharge: > 48 hours
Subjective/Interval History
-
Date of Service: December 04, 2024
resting comfortably, no complaints
Objective Data
-
Labs:
Laboratory Results
12/04/24
06:51
WBC 9.7
Hgb 9.1 L D
Hct 26.1 L
Plt Count 12 L* D
Sodium 141
Potassium 4.0
Chloride 110 H
Carbon Dioxide 24
BUN 15
Creatinine 0.7
Glucose 163 H
Calcium 8.2 L
Vital Signs:
Vital Signs
Temp Pulse Resp BP Pulse Ox
97.5 F 90 16 109/62 96
12/04/24 07:30 12/04/24 07:30 12/04/24 07:30 12/04/24 07:30 12/04/24 07:30
I&O
12/03/24 12/04/24 12/05/24
06:59 06:59 06:59
Intake Total 367 / 367 490 / 490
Balance 367 / 367 490 / 490
Physical Exam
-
General: No Apparent Distress
HEENT: Normocephalic and Atraumatic
Respiratory: Negative Wheezes
Cardiac: Regular Rhythm
GI: Soft
Musculoskeletal: No Edema
Neuro: AO x 3
Psych: Calm
Data Reviewed
-
Total Time Spent with Patient (in minutes): 41
Labs: Labs Reviewed by me
[2024-12-04] MEDS: TYLENOL 1000 MG PO (22:07)
[2024-12-05] VITALS (11 sets, daily range): BP systolic 113–133; BP diastolic 44–67; PULSE 66; O2SAT 96; BMI 27.5
[2024-12-05 07:02] LABS: INR 1.09; PT 14.4 Sec (11.4-14.6)
[2024-12-05 07:03] LABS: APTT 31.4 Sec (23.4-35.0); Fibrinogen 449 MG/DL (199-459)
[2024-12-05 07:05] LABS: D-Dimer 3.32 ug/mlFEU (0.00-0.50)
[2024-12-05 07:21] LABS: Blood Urea Nitrogen 22 mg/dl (7-17); Calcium 8.5 mg/dl (8.4-10.2); Carbon Dioxide 26 mmol/L (22-30); Chloride 110 mmol/L (98-107); Estimated Creatinine Clearance 60 ml/min; Glucose 136 mg/dl (70-99); LDH 525 U/L (120-246); Potassium 4.8 mmol/L (3.5-5.1); Sodium 140 mmol/L (135-145); eGFR > 60.00
[2024-12-05 07:26] LABS: NT-proBNP 3110 pg/ml
[2024-12-05 07:42] LABS: Hematocrit 24.4 % (37.0-47.0); Hemoglobin 8.6 g/dL (12.0-16.0); Mean Corp Hgb Conc. 35.2 g/dL (33.0-37.0); Mean Corpuscular Hgb 31.7 pg (27.0-31.0); Platelet Count 23 10^3/uL (130-400); Red Blood Cell Count 2.71 10^6/uL (4.20-5.40); White Blood Cell Count 11.5 10^3/uL (4.8-10.8)
[2024-12-05] MEDS: LEXAPRO 20 MG PO (08:23)
[2024-12-05] MEDS: VITAMIN D3 (cholecalciferol) 25 MCG PO (08:23)
[2024-12-05] MEDS: PROTONIX IV 40 MG IV ×2 (08:24→19:59)
[2024-12-05] MEDS: NSS (PRESERVATIVE FREE) 10 ML IV ×2 (08:24→19:59)
[2024-12-05] MEDS: DECADRON IV (08:29)
--- NOTE | 2024-12-05 08:50 | W.PN.ONC ---
Documented by User: Puja Jordan MD, Resident 12/05/24 13:34
Today's Communication / Plan
-
Discontinue Dexa
BMB recommended as soon as possible. Will arrange for transfer to [facility].
ATRA to be started while waiting for transfer. Spoke to both sons at bedside who were agreeable to ATRA. Consent obtained.
Impression
Impression
Patient is a 83-year-old female with past medical history of chronic iron deficiency anemia and B12 deficiency presenting with lightheadedness and melena for the past 2 weeks. Platelet 8, and hgb 8.7 on admission.
#Acute thrombocytopenia
- s/p 2unit plt transfusion.
- Baseline platelet count around 170.
- Dexa 40mg stopped after second dose since not responding and peripheral blasts more likely suggesting APL
- Platelet count today stands at 23 from 12 yesterday.
- No NSAIDS, anticoagulants or antiplatelets if plt count< 50,000.
- Threshold for plt transfusion given patient being febrile in current admission is 20,000
- Continue PPI BID. GI holding back on any interventions until plt > 50,000.
#Acute on chronic anemia
- Hgb stable at 8.6 s/p 1unit pRBC
- Transfuse pRBC if Hgb drops to less than 7.
- Peripheral blood smear reviewed with Dr. Kline, which showed around 10% blasts and 23% promyelocytes. BM biopsy recommended.
- Peripheral blood cytometry-pending, followed with pathology. To be done tomorrow but Dr. Kirby called to expedite.
- BMB recommended as soon as possible. Will arrange for transfer to [facility].
- ATRA to be started while waiting for transfer.
- Cont to monitor CBC and VS closely.
#Acute hypoxic respiratory insufficiency
#Febrile illness
#Abnormal UA
- Management per primary team
FULL CODE
Plan
Plan
Dexa discontinued
No NSAIDS, anticoagulants or antiplatelets if plt count< 50,000
Threshold for plt transfusion given patient being febrile in current admission is 20,000
Peripheral blood cytometry-pending, followed with pathology. To be done tomorrow but Dr. Kirby called to expedite.
BMB recommended as soon as possible. Will arrange for transfer to [facility]. [place] requires platelets to be above 50,000.
ATRA to be started while waiting for transfer.
Transfuse pRBC if Hgb <7
Subjective/Objective
Subjective/Objective
Patient is doing well in general.
Vital Signs:
Vital Signs
Temp Pulse Resp BP Pulse Ox
97.8 F 63 19 121/59 93
12/05/24 08:38 12/05/24 08:38 12/05/24 08:38 12/05/24 08:38 12/05/24 08:38
Lab Results:
Laboratory Data
WBC 11.5 10^3/uL (4.8-10.8) H 12/05/24 06:42
Hgb 8.6 g/dL (12.0-16.0) L 12/05/24 06:42
Plt Count 23 10^3/uL (130-400) L* D 12/05/24 06:42
PT 14.4 Sec (11.4-14.6) 12/05/24 06:42
INR 1.09 12/05/24 06:42
APTT 31.4 Sec (23.4-35.0) 12/05/24 06:42
eGFR > 60.00 12/05/24 06:42
Orders
Orders
Orders From Last 24 Hours
12/04/24 13:13
Blood Bank Products [* Blood Bank Products] Routine

Documented by User: Dario Colindres MD 12/05/24 16:53
Plan
Plan
Dexa discontinued
No NSAIDS, anticoagulants or antiplatelets if plt count< 50,000
Threshold for plt transfusion given patient being febrile in current admission is 20,000
Peripheral blood cytometry-pending, followed with pathology. To be done tomorrow but Dr. Kirby called to expedite.
BMB recommended as soon as possible. Will arrange for transfer to [facility]. [place] requires platelets to be above 50,000.
ATRA to be started while waiting for transfer.
Transfuse pRBC if Hgb <7
Attending: seen in conjunction with PG1. Begin ATRA, awaiting transfer to [facility]. 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
[2024-12-05 09:02] LABS: Absolute Neutrophils -Man Diff 3.2 10^3/uL (1.4-6.5); Atypical Lymphocytes 9 %; Band Neutrophils 4 % (0-3); Lymphocytes 37 % (20-51); Metamyelocytes 2 % (-); Monocytes 14 % (2-9); Myelocytes 5 % (-); Platelets Checked Yes; Segmented Neutrophils 24 % (42-75)
[2024-12-05 09:03] LABS: Anisocytosis 1+; Normal RBC Morphology No; Ovalocytes 1+; Polychromasia Slight; Total Cells Counted 100
[2024-12-05 09:04] LABS: Blasts 5 % (-)
[2024-12-05 09:35] LABS: Glycohemoglobin (HgbA1c) 7.2 % (4.0-5.6)
[2024-12-05] MEDS: ROCEPHIN 1000 MG IV (09:55)
[2024-12-05] MEDS: STERILE WATER FOR INJECTION 10 ML IV (09:55)
[2024-12-05] MEDS: LASIX 20 MG IV (09:57)
--- NOTE | 2024-12-05 10:43 | W.PN.HOSP.TC ---
Addendum entered and electronically signed by Albania Velazquez MD 12/06/24 08:44:
UTI
Addendum entered and electronically signed by Albania Velazquez MD 12/05/24 13:29:
notified by Heme/Onc service that patient accepted by Dr. Trev Epperson [facility]
Addendum entered and electronically signed by Albania Velazquez MD 12/05/24 10:58:
correction: steroids were discontinued
Original Note:
Today's Communication/Plan
-
Heme/Onc arranging for transfer to [facility]; for now continue plan of care as outlined
IV Lasix for acute HFpEF
Assessment / Plan
Assessment / Plan
Assessment:
Acute blood loss anemia exacerbated by acute severe thrombocytopenia
acute Symptomatic anemia (dizziness) on chronic anemia (from iron deficiency and b12 deficiency)
Underlying history of GERD/Mojica esophagus, Juan Jose lesions and PUD
- GI signed off. continue PPI BID. No role for EGD with degree of thrombocytopenia.
- Heme/Onc consulted; flow cytometry and peripheral smear concerning for APL.
- Heme/Onc recommends ATRA (20�45 mg/m2/day) - confirmed with pharmacy that it is not on formulary. No current evidence of TLS.
- s/p 1 unit PRBC and 2 packs platelets. Follow CBC.
- continue steroids
- eventual Bone marrow biopsy IP vs OP
- d/w Heme/Onc - they are pursuing transfer to [facility] for acute leukemia treatment
Acute hypoxic respiratory insufficiency on 3L NC
acute HFpEF, possible related to blood products
- CXR: Mild cardiomegaly. Pulmonary vascularity within the limits of normal.
- IV Lasix x 2 doses
- wean O2 as able
Abnormal UA
- completed 3 day Rocephin course
- mixed ryan on culture
Hypokalemia may be malabsorption
- replete prn
Depression
- Continue Lexapro
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
History of Klebsiella bacteremia
Hyperlipidemia
DVT ppx: SCDs
Code: Full
Anticipated Discharge: 24 - 48 hours
Subjective/Interval History
-
Date of Service: December 05, 2024
denies any new complaints at present
Objective Data
-
Labs:
Laboratory Results
12/05/24
06:42
WBC 11.5 H
Hgb 8.6 L
Hct 24.4 L
Plt Count 23 L* D
PT 14.4
INR 1.09
APTT 31.4
Sodium 140
Potassium 4.8
Chloride 110 H
Carbon Dioxide 26
BUN 22 H
Creatinine 0.7
Glucose 136 H
Calcium 8.5
Vital Signs:
Vital Signs
Temp Pulse Resp BP Pulse Ox
97.8 F 63 19 121/59 93
12/05/24 07:00 12/05/24 07:00 12/05/24 07:00 12/05/24 07:00 12/05/24 07:00
I&O
12/04/24 12/05/24 12/06/24
06:59 06:59 06:59
Intake Total 490 / 490 268 / 268
Balance 490 / 490 268 / 268
Physical Exam
-
General: No Apparent Distress
HEENT: Normocephalic and Atraumatic
Respiratory: Negative Wheezes
Cardiac: Regular Rhythm and S1/S2
GI: Soft and Nontender
Neuro: AO x 3
Hematologic / Lymphatic: No Lymphadenopathy
Psych: Calm
Data Reviewed
-
Total Time Spent with Patient (in minutes): 51
Labs: Labs Reviewed by me
--- NOTE | 2024-12-05 12:28 | CM ---
Chart reviewed. Care ongoing
Heme/Onc arranging for transfer to [facility]
Plan: Transfer to [facility] for continued treatment
[2024-12-05 12:42] LABS: Number Of Markers 39 markers; Source Blood
[2024-12-05] MEDS: ZYLOPRIM 300 MG PO (14:24)
--- NOTE | 2024-12-05 15:09 | PN.CDI ---
CDI
- -
CDI:
Physician Documentation Request
Admit Date: 12/02/24 15:14
Dear Doctor Caroline,
Please review the following and provide your response in the progress notes.
Clinical Indicators:
PN, 12/05
#Abnormal UA
#...- completed 3 day Rocephin course
#...- mixed ryan on culture
Based on the above and your clinical assessment, please clarify the appropriate diagnosis, if significant, that supports the above abnormalities and additional evaluation, monitoring and/or treatment rendered:
UTI
Abnormal UA only
Other (fabiola specify)
Use of terms such as suspected, likely, concern for, or probable (associated with a specific diagnosis that is being evaluated, monitored, or treated as if it exists) are acceptable and can be coded in the inpatient setting, when documented at the
time of discharge.
Thank you,
Arin Washburn RN BSN CCDS
CDI Specialist
Please contact via tiger text
Please use your independent medical judgment in providing your response.
== END 2024-12-05 21:45 | disposition short-term general hospital (02) | DRG 813 ==
LOC: 4 WEST ACU 15:14
PROVIDERS: Nurse Practitioner Acute Care; ADMITTING PHYSICIAN Hospitalist; ATTENDING PHYSICIAN Internal Medicine; CONSULT PHYSICIAN Internal Medicine Gastroenterology; CONSULT PHYSICIAN Internal Medicine Hematology & Oncology; EMERGENCY PHYSICIAN Emergency Medicine
PROC: 30233R1 Transfusion of Nonautologous Platelets into Peripheral Vein, Percutaneous Approach (ICD-10-PCS; 2024-12-02)
PROC: 30233N1 Transfusion of Nonautologous Red Blood Cells into Peripheral Vein, Percutaneous Approach (ICD-10-PCS; 2024-12-03)
DX: D69.3 Immune thrombocytopenic purpura (principal); I50.31 Acute diastolic (congestive) heart failure; K26.4 Chronic or unspecified duodenal ulcer with hemorrhage; D61.818 Other pancytopenia; N39.0 Urinary tract infection, site not specified; D62 Acute posthemorrhagic anemia; K21.9 Gastro-esophageal reflux disease without esophagitis; E87.6 Hypokalemia; F32.A Depression, unspecified; G51.0 Bell's palsy; R09.02 Hypoxemia; R06.89 Other abnormalities of breathing; E78.00 Pure hypercholesterolemia, unspecified; Z60.2 Problems related to living alone
CPT/HCPCS: 36430; 70450; 71046; 80048; 80053; 81003; 81015; 82607; 82728; 82746; 83036; 83540; 83550; 83615; 83735; 83880; 84550; 85025; 85045; 85379; 85384; 85610; 85730; 86850; 86900; 86901; 86920; 87086; 93005; 93306; 96361; 96374; 97116; 97162; 97166; 99285; P9016; P9073